=== PATIENT | male | born 1930 | race Caucasian/White ===

== ENCOUNTER → 2016-09-14 | Outpatient (CLI) | payer OTHER ==
[~2016-09-14] MED LIST: OMNIPAQUE 350 MG/ML, 100ML BOTTLE ONE
== END | disposition home or self-care (01) ==
LOC: CFH 10:14
PROVIDERS: ATTEND Otolaryngology Facial Plastic Surgery
DX: R49.9 Unspecified voice and resonance disorder (principal); J02.9 Acute pharyngitis, unspecified; R49.0 Dysphonia
CPT/HCPCS: 70491; Q9967

== ENCOUNTER 2017-05-01 14:52 | Inpatient (IN) | payer OTHER ==
[~2017-05-01] VITALS: Ht 177.8 cm; Wt 119.0 kg
[2017-05-01] MEDS ORDERED: ALBUTEROL/IPRATROPIUM 2.5MG/0.5MG, 3 ML ONE (15:21)
[2017-05-01] MEDS ORDERED: FUROSEMIDE 40 MG/4 ML IV ONE (15:30)
[2017-05-01] MEDS ORDERED: ALBUTEROL/IPRATROPIUM 2.5MG/0.5MG, 3 ML NPPB ONE (15:30)
[2017-05-01] MEDS ORDERED: SODIUM CHLORIDE FLUSH 10ML SYR IVF ONE (15:30)
[2017-05-01] MEDS ORDERED: LEVO150T5 PO (15:39)
[2017-05-01 15:54] LABS: ALANINE AMINOTRANSFERASE 23 U/L (12-78); ALBUMIN 2.9 g/dL (3.4-5.0); ANION GAP 8 mmol/L (5-15); CHLORIDE 105 mmol/L (98-107)
[2017-05-01 15:58] LABS: ALKALINE PHOSPHATASE 51 U/L (45-117); BILIRUBIN,TOTAL 0.9 mg/dL (0.2-1.0); TOTAL PROTEIN 7.2 g/dL (6.4-8.2); TROPONIN I 0.104 ng/mL (0.000-0.045)
[2017-05-01 16:23] LABS: MEAN CORPUSCULAR HEMOGLOBIN 22.1 pg (27.5-34.5); MEAN CORPUSCULAR HGB CONC 30.1 g/dL (33.2-36.2); MEAN CORPUSCULAR VOLUME 73.6 fL (81-97); RED BLOOD COUNT 7.92 x10^6/uL (4.38-5.82); RED CELL DISTRIBUTION WIDTH 21.2 % (9.4-14.8)
[2017-05-01 16:27] LABS: MD YES
[2017-05-01] MEDS ORDERED: FUROSEMIDE 40 MG/4 ML ONE (16:29)
[2017-05-01] MEDS ORDERED: ASPIRIN 81 MG TABLET CHEW ONE (16:29)
[2017-05-01 16:30] LABS: BANDS%(MANUAL) 1 % (0-7); BASOS% (MANUAL) 1 % (0-1); EOS% (MANUAL) 1 % (1-7); LYMPH#(MANUAL) 0.67 x10^3/uL (1-3.4); LYMPHS% (MANUAL) 7 % (22-44); MONOS#(MANUAL) 1.06 x10^3/uL (0.3-2.7); MONOS% (MANUAL) 11 % (2-9); NRBC % (MANUAL) 3 % (0-1); SEG#(MANUAL) 7.58 x10^3/uL (1.8-6.8); SEGS% (MANUAL) 79 % (42-75)
[2017-05-01] MEDS ORDERED: ASPIRIN 81 MG TABLET CHEW PO ONE (16:30)
[2017-05-01 16:31] LABS: MICROCYTOSIS 2+; OVALOCYTES 1+; POLYCHROMASIA 1+
[2017-05-01 16:33] LABS: <PLATELET ESTIMATE> ADEQUATE; GIANT PLATELETS 1+; LARGE PLATELETS 2+
[2017-05-01 16:34] LABS: ANISOCYTOSIS 1+; HYPOCHROMIA 2+
[2017-05-01 16:35] LABS: PLATELET COUNT 182 x10^3/uL (130-400)
[2017-05-01 16:51] LABS: MEAN PLATELET VOLUME 11.4 fL (7.4-10.4)
[2017-05-01] MEDS ORDERED: ZOLPIDEM 5MG TABLET PO PRN (17:30)
[2017-05-01] MEDS ORDERED: HYDROcodone/APAP 5/325 TABLET PO PRN (17:30)
[2017-05-01] MEDS ORDERED: FUROSEMIDE 40 MG/4 ML IV SCH (17:30)
[2017-05-01] MEDS ORDERED: ONDANSETRON ODT 4 MG PO PRN (17:30)
[2017-05-01] MEDS ORDERED: PRAZ2CAP2 PO (17:31)
[2017-05-01 19:20] VITALS: BP 117/69
[2017-05-01 20:33] VITALS: BP 117/69
[2017-05-01] MEDS: ENOXAPARIN 30 MG/0.3 ML SQ SCH (21:40)
[2017-05-02 01:38] VITALS: BP 115/69
[2017-05-02] MEDS: LEVOTHYROXINE 150 MCG TABLET PO SCH (05:52)
[2017-05-02 06:03] LABS: MEAN CORPUSCULAR HEMOGLOBIN 22.3 pg (27.5-34.5); MEAN CORPUSCULAR HGB CONC 30.2 g/dL (33.2-36.2); MEAN CORPUSCULAR VOLUME 73.9 fL (81-97); MEAN PLATELET VOLUME 11.4 fL (7.4-10.4); PLATELET COUNT 165 x10^3/uL (130-400); RED BLOOD COUNT 7.71 x10^6/uL (4.38-5.82); RED CELL DISTRIBUTION WIDTH 21.6 % (9.4-14.8)
[2017-05-02 06:26] LABS: HEMOGLOBIN A1C 7.7 % (4.2-6.3)
[2017-05-02 06:27] LABS: ALBUMIN 2.6 g/dL (3.4-5.0); ANION GAP 7 mmol/L (5-15); CHLORIDE 107 mmol/L (98-107)
[2017-05-02 06:36] LABS: MD YES
[2017-05-02 06:38] LABS: ALANINE AMINOTRANSFERASE 18 U/L (12-78); ALKALINE PHOSPHATASE 49 U/L (45-117); BILIRUBIN,TOTAL 0.7 mg/dL (0.2-1.0); CREATININE 2.36 mg/dL (0.7-1.3); EOS#(MANUAL) 0.09 x10^3/uL (0.0-0.4); EOS% (MANUAL) 1 % (1-7); FREE T4 (FREE THYROXINE) 1.08 ng/dL (0.76-1.46); LYMPH#(MANUAL) 0.83 x10^3/uL (1-3.4); LYMPHS% (MANUAL) 9 % (22-44); MONOS% (MANUAL) 12 % (2-9); NRBC % (MANUAL) 2 % (0-1); SEG#(MANUAL) 7.18 x10^3/uL (1.8-6.8); SEGS% (MANUAL) 78 % (42-75); THYROID STIMULATING HORMONE 0.368 mIU/L (0.358-3.740); TOTAL PROTEIN 6.6 g/dL (6.4-8.2)
[2017-05-02 06:40] LABS: <PLATELET ESTIMATE> ADEQUATE; ANISOCYTOSIS 1+; HYPOCHROMIA 2+; MICROCYTOSIS 2+; POLYCHROMASIA 1+
[2017-05-02 06:41] LABS: GIANT PLATELETS 1+; LARGE PLATELETS 1+
[2017-05-02] MEDS: ALBUTEROL/IPRATROPIUM 2.5MG/0.5MG, 3 ML NPPB SCH ×4 (07:00→19:17)
[2017-05-02] MEDS ORDERED: VANCOMYCIN PER PHARMACY MC PRN (08:00)
[2017-05-02] MEDS ORDERED: PHARMACOKINETIC MONITORING MC PRN (08:00)
[2017-05-02] MEDS ORDERED: PHARMACOKINETIC CONSULTATION MC ONE (08:00)
[2017-05-02 08:04] VITALS: BP 122/78
[2017-05-02] MEDS ORDERED: VANCOMYCIN 2,000 MG in SODIUM CHLORIDE 0.9% 500 ML IV SCH (09:00)
[2017-05-02] MEDS: INSULIN LISPRO 100 UNITS/ML, PEN SQ-INSULIN SCH ×3 (12:00→20:46)
[2017-05-02 12:52] LABS: MICROSCOPIC INDICATED
[2017-05-02 12:54] LABS: CULTURE INDICATED? YES
[2017-05-02] MEDS: PIPERACILLIN/TAZO/PMX 3.375GM 50 ML IV SCH ×2 (13:13→19:39)
[2017-05-02] MEDS: methylPREDNISolone SOD SUCC 125 MG/2 ML IVPush SCH ×2 (13:13→19:38)
[2017-05-02] MEDS ORDERED: FUROSEMIDE 100 MG/10 ML IV ONE (13:30)
[2017-05-02] MEDS ORDERED: FUROSEMIDE 40 MG/4 ML ONE (14:18)
[2017-05-02] MEDS: LINEZOLID PMX 600MG/300ML 300 ML IV SCH (14:25)
[2017-05-02] MEDS: ENOXAPARIN 30 MG/0.3 ML SQ SCH (20:46)
[2017-05-03] MEDS: LINEZOLID PMX 600MG/300ML 300 ML IV SCH ×2 (00:15→12:18)
[2017-05-03] MEDS: PIPERACILLIN/TAZO/PMX 3.375GM 50 ML IV SCH ×4 (00:15→20:27)
[2017-05-03] MEDS: methylPREDNISolone SOD SUCC 125 MG/2 ML IVPush SCH ×4 (00:15→20:28)
[2017-05-03 04:49] LABS: CHLORIDE 108 mmol/L (98-107)
[2017-05-03 04:56] LABS: ALANINE AMINOTRANSFERASE 20 U/L (12-78); ALBUMIN 2.5 g/dL (3.4-5.0); ALKALINE PHOSPHATASE 46 U/L (45-117); ANION GAP 4 mmol/L (5-15); BILIRUBIN,TOTAL 0.7 mg/dL (0.2-1.0); CALCIUM 7.5 mg/dL (8.5-10.1); MEAN CORPUSCULAR HEMOGLOBIN 22.1 pg (27.5-34.5); MEAN CORPUSCULAR VOLUME 73.8 fL (81-97); MEAN PLATELET VOLUME 11.4 fL (7.4-10.4); PLATELET COUNT 145 x10^3/uL (130-400); RED BLOOD COUNT 7.66 x10^6/uL (4.38-5.82); RED CELL DISTRIBUTION WIDTH 22.2 % (9.4-14.8); TOTAL PROTEIN 6.6 g/dL (6.4-8.2)
[2017-05-03 05:45] LABS: MD YES
[2017-05-03 05:46] LABS: LYMPH#(MANUAL) 0.28 x10^3/uL (1-3.4); LYMPHS% (MANUAL) 4 % (22-44); MONOS#(MANUAL) 0.21 x10^3/uL (0.3-2.7); MONOS% (MANUAL) 3 % (2-9); NRBC % (MANUAL) 3 % (0-1); SEGS% (MANUAL) 93 % (42-75)
[2017-05-03 05:47] LABS: ANISOCYTOSIS 1+; HYPOCHROMIA 2+; MICROCYTOSIS 2+; POLYCHROMASIA 1+
[2017-05-03 05:48] LABS: <PLATELET ESTIMATE> ADEQUATE
[2017-05-03 05:49] LABS: LARGE PLATELETS 1+
[2017-05-03 05:50] LABS: GIANT PLATELETS 1+
[2017-05-03] MEDS: LEVOTHYROXINE 150 MCG TABLET PO SCH (06:01)
[2017-05-03] MEDS: ALBUTEROL/IPRATROPIUM 2.5MG/0.5MG, 3 ML NPPB SCH ×4 (06:34→20:00)
[2017-05-03 09:00] LABS: FIO2 95 %
[2017-05-03] MEDS ORDERED: FUROSEMIDE 40 MG/4 ML IV SCH (09:00)
[2017-05-03] MEDS: INSULIN LISPRO 100 UNITS/ML, PEN SQ-INSULIN SCH ×4 (09:42→20:32)
[2017-05-03] MEDS: FUROSEMIDE 40 MG/4 ML IV SCH ×2 (09:49→18:36)
[2017-05-03] MEDS: ENOXAPARIN 30 MG/0.3 ML SQ SCH (20:28)
[2017-05-04] MEDS: LINEZOLID PMX 600MG/300ML 300 ML IV SCH (01:26)
[2017-05-04] MEDS: methylPREDNISolone SOD SUCC 125 MG/2 ML IVPush SCH ×3 (04:33→18:06)
[2017-05-04] MEDS: PIPERACILLIN/TAZO/PMX 3.375GM 50 ML IV SCH ×2 (04:33→09:39)
[2017-05-04 05:02] LABS: ANION GAP 5 mmol/L (5-15); CALCIUM 7.4 mg/dL (8.5-10.1); CHLORIDE 107 mmol/L (98-107)
[2017-05-04 05:06] LABS: ALANINE AMINOTRANSFERASE 14 U/L (12-78); ALBUMIN 2.5 g/dL (3.4-5.0); ALKALINE PHOSPHATASE 37 U/L (45-117); BILIRUBIN,TOTAL 0.7 mg/dL (0.2-1.0); CREATININE 2.15 mg/dL (0.7-1.3); TOTAL PROTEIN 6.2 g/dL (6.4-8.2)
[2017-05-04 05:11] LABS: MEAN CORPUSCULAR HEMOGLOBIN 21.9 pg (27.5-34.5); MEAN CORPUSCULAR VOLUME 73.4 fL (81-97); MEAN PLATELET VOLUME 11.8 fL (7.4-10.4); PLATELET COUNT 150 x10^3/uL (130-400); RED BLOOD COUNT 7.61 x10^6/uL (4.38-5.82); RED CELL DISTRIBUTION WIDTH 21.9 % (9.4-14.8)
[2017-05-04 05:58] LABS: MD YES
[2017-05-04 06:00] LABS: MEAN CORPUSCULAR HGB CONC 29.8 g/dL (33.2-36.2)
[2017-05-04 06:08] LABS: <PLATELET ESTIMATE> ADEQUATE; ANISOCYTOSIS 1+; GIANT PLATELETS 1+; HYPOCHROMIA 2+; LARGE PLATELETS 1+; LYMPH#(MANUAL) 0.25 x10^3/uL (1-3.4); LYMPHS% (MANUAL) 2 % (22-44); MICROCYTOSIS 2+; MONOS#(MANUAL) 0.13 x10^3/uL (0.3-2.7); MONOS% (MANUAL) 1 % (2-9); NRBC % (MANUAL) 3 % (0-1); POLYCHROMASIA 1+
[2017-05-04 06:09] LABS: BAND#(MANUAL) 0.88 x10^3/uL; BANDS%(MANUAL) 7 % (0-7); SEG#(MANUAL) 11.34 x10^3/uL (1.8-6.8); SEGS% (MANUAL) 90 % (42-75)
[2017-05-04] MEDS: LEVOTHYROXINE 150 MCG TABLET PO SCH (06:26)
[2017-05-04] MEDS: ALBUTEROL/IPRATROPIUM 2.5MG/0.5MG, 3 ML NPPB SCH ×6 (06:55→23:36)
[2017-05-04] MEDS: FUROSEMIDE 40 MG/4 ML IV SCH ×2 (08:08→18:07)
[2017-05-04] MEDS: INSULIN LISPRO 100 UNITS/ML, PEN SQ-INSULIN SCH ×4 (08:08→20:21)
[2017-05-04] MEDS: SODIUM BICARBONATE 4.2%, 5ML NPPB SCH ×2 (09:51→14:42)
[2017-05-04] MEDS ORDERED: MELATONIN 5 MG TABLET PO PRN (11:30)
[2017-05-04] MEDS ORDERED: CEFTRIAXONE PMX 2GM/50ML 50 ML IVPB SCH (13:00)
[2017-05-04] MEDS: ENOXAPARIN 30 MG/0.3 ML SQ SCH (20:20)
[2017-05-04] MEDS: INSULIN GLARGINE 100 UNITS/ML, PEN SQ-INSULIN SCH (20:22)
[2017-05-05] MEDS: methylPREDNISolone SOD SUCC 125 MG/2 ML IVPush SCH ×4 (00:21→17:08)
[2017-05-05] MEDS: ALBUTEROL/IPRATROPIUM 2.5MG/0.5MG, 3 ML NPPB SCH ×6 (03:21→21:22)
[2017-05-05 04:45] LABS: MEAN CORPUSCULAR HEMOGLOBIN 21.9 pg (27.5-34.5); MEAN CORPUSCULAR HGB CONC 29.7 g/dL (33.2-36.2); MEAN CORPUSCULAR VOLUME 73.7 fL (81-97); MEAN PLATELET VOLUME 12.1 fL (7.4-10.4); PLATELET COUNT 149 x10^3/uL (130-400); RED BLOOD COUNT 7.98 x10^6/uL (4.38-5.82); RED CELL DISTRIBUTION WIDTH 22.4 % (9.4-14.8)
[2017-05-05 04:51] LABS: ALBUMIN 2.6 g/dL (3.4-5.0); ANION GAP 6 mmol/L (5-15); CALCIUM 7.1 mg/dL (8.5-10.1); CHLORIDE 105 mmol/L (98-107)
[2017-05-05 04:56] LABS: ALANINE AMINOTRANSFERASE 18 U/L (12-78); ALKALINE PHOSPHATASE 38 U/L (45-117); BILIRUBIN,TOTAL 0.6 mg/dL (0.2-1.0); CREATININE 1.89 mg/dL (0.7-1.3); TOTAL PROTEIN 6.4 g/dL (6.4-8.2)
[2017-05-05 05:40] LABS: MD YES
[2017-05-05 05:42] LABS: ANISOCYTOSIS 1+; BANDS%(MANUAL) 5 % (0-7); LYMPH#(MANUAL) 0.12 x10^3/uL (1-3.4); LYMPHS% (MANUAL) 1 % (22-44); MONOS#(MANUAL) 0.24 x10^3/uL (0.3-2.7); MONOS% (MANUAL) 2 % (2-9); SEG#(MANUAL) 11.04 x10^3/uL (1.8-6.8); SEGS% (MANUAL) 92 % (42-75)
[2017-05-05 05:43] LABS: <PLATELET ESTIMATE> ADEQUATE; LARGE PLATELETS 1+; POLYCHROMASIA 1+
[2017-05-05 05:44] LABS: HYPOCHROMIA 1+; MICROCYTOSIS 2+
[2017-05-05] MEDS: LEVOTHYROXINE 150 MCG TABLET PO SCH (06:31)
[2017-05-05] MEDS: INSULIN LISPRO 100 UNITS/ML, PEN SQ-INSULIN SCH ×4 (09:10→21:31)
[2017-05-05] MEDS: FUROSEMIDE 40 MG/4 ML IV SCH ×2 (09:11→17:08)
[2017-05-05] MEDS ORDERED: MAGNESIUM HYDROXIDE 8%, 30ML UDC PO PRN (12:00)
[2017-05-05] MEDS: CEFTRIAXONE 2 GM in DEXTROSE 5% 50 ML IVPB SCH (12:59)
[2017-05-05] MEDS ORDERED: INSULIN GLARGINE 100 UNITS/ML, PEN SQ-INSULIN ONE (13:30)
[2017-05-05] MEDS ORDERED: PRAZOSIN 2 MG CAPSULE PO ONE (13:30)
[2017-05-05] MEDS ORDERED: BISACODYL 5 MG EC TABLET PO PRN (13:30)
[2017-05-05] MEDS ORDERED: PHARMACY MAY ADJ FOR RENAL FX MC PRN (14:30)
[2017-05-05] MEDS: ENOXAPARIN 30 MG/0.3 ML SQ SCH (21:30)
[2017-05-05] MEDS: INSULIN GLARGINE 100 UNITS/ML, PEN SQ-INSULIN SCH (21:32)
[2017-05-06] MEDS: methylPREDNISolone SOD SUCC 125 MG/2 ML IVPush SCH ×3 (01:19→18:10)
[2017-05-06] MEDS: ALBUTEROL/IPRATROPIUM 2.5MG/0.5MG, 3 ML NPPB SCH ×6 (01:45→21:12)
[2017-05-06 04:00] VITALS: BP 121/69
[2017-05-06 04:33] LABS: MEAN CORPUSCULAR HEMOGLOBIN 22.1 pg (27.5-34.5); MEAN CORPUSCULAR HGB CONC 30.1 g/dL (33.2-36.2); MEAN CORPUSCULAR VOLUME 73.3 fL (81-97); MEAN PLATELET VOLUME 11.7 fL (7.4-10.4); PLATELET COUNT 145 x10^3/uL (130-400); RED BLOOD COUNT 7.79 x10^6/uL (4.38-5.82); RED CELL DISTRIBUTION WIDTH 21.6 % (9.4-14.8)
[2017-05-06 04:45] LABS: ANION GAP 6 mmol/L (5-15); CALCIUM 7.1 mg/dL (8.5-10.1); CHLORIDE 105 mmol/L (98-107); CREATININE 1.85 mg/dL (0.7-1.3)
[2017-05-06 04:59] LABS: MD YES
[2017-05-06 05:00] LABS: LYMPH#(MANUAL) 0.67 x10^3/uL (1-3.4); LYMPHS% (MANUAL) 6 % (22-44); MONOS#(MANUAL) 0.33 x10^3/uL (0.3-2.7); MONOS% (MANUAL) 3 % (2-9); SEGS% (MANUAL) 91 % (42-75)
[2017-05-06 05:01] LABS: <PLATELET ESTIMATE> ADEQUATE; ANISOCYTOSIS 1+; HYPOCHROMIA 1+; LARGE PLATELETS 1+; MICROCYTOSIS 2+; POLYCHROMASIA 1+
[2017-05-06] MEDS: LEVOTHYROXINE 150 MCG TABLET PO SCH (06:37)
[2017-05-06] MEDS: INSULIN LISPRO 100 UNITS/ML, PEN SQ-INSULIN SCH (06:41)
[2017-05-06] MEDS ORDERED: PRAZOSIN 2 MG CAPSULE PO SCH (09:00)
[2017-05-06] MEDS: FUROSEMIDE 40 MG/4 ML IV SCH ×2 (09:02→18:10)
[2017-05-06] MEDS ORDERED: POTASSIUM CHLORIDE 10% 40 MEQ/30 ML UDC PO ONE (09:30)
[2017-05-06] MEDS: CEFTRIAXONE 2 GM in DEXTROSE 5% 50 ML IVPB SCH (12:44)
[2017-05-06] MEDS ORDERED: INSULIN GLARGINE 100 UNITS/ML, PEN SQ-INSULIN ONE (13:00)
[2017-05-06] MEDS: INSULIN LISPRO 100 UNITS/ML, PEN MEDIUM DOSE SS SQ-INSULIN SCH ×3 (13:08→20:50)
[2017-05-06] MEDS: ENOXAPARIN 30 MG/0.3 ML SQ SCH (20:49)
[2017-05-06] MEDS: INSULIN GLARGINE 100 UNITS/ML, PEN SQ-INSULIN SCH (20:50)
[2017-05-07] MEDS: methylPREDNISolone SOD SUCC 125 MG/2 ML IVPush SCH (00:51)
[2017-05-07] MEDS: ALBUTEROL/IPRATROPIUM 2.5MG/0.5MG, 3 ML NPPB SCH ×6 (02:53→22:12)
[2017-05-07 04:31] LABS: ALBUMIN 2.7 g/dL (3.4-5.0); ANION GAP 6 mmol/L (5-15); CALCIUM 7.9 mg/dL (8.5-10.1); CHLORIDE 102 mmol/L (98-107)
[2017-05-07 04:35] LABS: ALANINE AMINOTRANSFERASE 34 U/L (12-78); ALKALINE PHOSPHATASE 40 U/L (45-117); BILIRUBIN,TOTAL 1.2 mg/dL (0.2-1.0); TOTAL PROTEIN 6.4 g/dL (6.4-8.2)
[2017-05-07 05:21] VITALS: BP 166/80
[2017-05-07 05:42] LABS: MEAN CORPUSCULAR HGB CONC 30.3 g/dL (33.2-36.2); MEAN CORPUSCULAR VOLUME 72.4 fL (81-97); MEAN PLATELET VOLUME 11.8 fL (7.4-10.4); PLATELET COUNT 150 x10^3/uL (130-400); RED CELL DISTRIBUTION WIDTH 21.5 % (9.4-14.8)
[2017-05-07 06:09] LABS: MD YES
[2017-05-07 06:11] LABS: ANISOCYTOSIS 1+; BAND#(MANUAL) 0.11 x10^3/uL; BANDS%(MANUAL) 1 % (0-7); LYMPH#(MANUAL) 0.11 x10^3/uL (1-3.4); LYMPHS% (MANUAL) 1 % (22-44); NRBC % (MANUAL) 1 % (0-1); SEG#(MANUAL) 10.49 x10^3/uL (1.8-6.8); SEGS% (MANUAL) 98 % (42-75)
[2017-05-07 06:13] LABS: MICROCYTOSIS 1+; POLYCHROMASIA 1+
[2017-05-07 06:14] LABS: <PLATELET ESTIMATE> ADEQUATE; LARGE PLATELETS 1+
[2017-05-07] MEDS: LEVOTHYROXINE 150 MCG TABLET PO SCH (06:24)
[2017-05-07] MEDS: INSULIN LISPRO 100 UNITS/ML, PEN MEDIUM DOSE SS SQ-INSULIN SCH ×4 (07:56→20:01)
[2017-05-07] MEDS: AMLODIPINE 5 MG TABLET PO SCH (09:13)
[2017-05-07] MEDS: CEFTRIAXONE 2 GM in DEXTROSE 5% 50 ML IVPB SCH (12:35)
[2017-05-07] MEDS: ENOXAPARIN 40 MG/0.4 ML SQ SCH (20:01)
[2017-05-07] MEDS: INSULIN GLARGINE 100 UNITS/ML, PEN SQ-INSULIN SCH (20:02)
[2017-05-08] MEDS: LEVOTHYROXINE 150 MCG TABLET PO SCH (05:16)
[2017-05-08 05:40] VITALS: BP 156/90
[2017-05-08] MEDS: ALBUTEROL/IPRATROPIUM 2.5MG/0.5MG, 3 ML NPPB SCH ×5 (06:42→22:01)
[2017-05-08] MEDS: AMLODIPINE 5 MG TABLET PO SCH (08:17)
[2017-05-08] MEDS: INSULIN LISPRO 100 UNITS/ML, PEN MEDIUM DOSE SS SQ-INSULIN SCH ×4 (08:18→21:11)
[2017-05-08 09:24] LABS: MEAN CORPUSCULAR HEMOGLOBIN 22.1 pg (27.5-34.5); MEAN CORPUSCULAR HGB CONC 30.6 g/dL (33.2-36.2); MEAN CORPUSCULAR VOLUME 72.3 fL (81-97); MEAN PLATELET VOLUME 11.1 fL (7.4-10.4); PLATELET COUNT 133 x10^3/uL (130-400); RED CELL DISTRIBUTION WIDTH 20.9 % (9.4-14.8)
[2017-05-08 09:25] LABS: ANION GAP 6 mmol/L (5-15); CALCIUM 8.2 mg/dL (8.5-10.1); CHLORIDE 102 mmol/L (98-107)
[2017-05-08 09:26] LABS: CREATININE 1.53 mg/dL (0.7-1.3)
[2017-05-08 09:39] LABS: RED BLOOD COUNT 8.66 x10^6/uL (4.38-5.82)
[2017-05-08 10:05] LABS: MD YES
[2017-05-08 10:07] LABS: LYMPH#(MANUAL) 0.36 x10^3/uL (1-3.4); LYMPHS% (MANUAL) 3 % (22-44); MONOS#(MANUAL) 0.48 x10^3/uL (0.3-2.7); MONOS% (MANUAL) 4 % (2-9); SEG#(MANUAL) 11.25 x10^3/uL (1.8-6.8); SEGS% (MANUAL) 93 % (42-75)
[2017-05-08 10:08] LABS: ANISOCYTOSIS 1+
[2017-05-08 10:09] LABS: MICROCYTOSIS 2+
[2017-05-08 10:10] LABS: LARGE PLATELETS 1+
[2017-05-08 10:12] LABS: <PLATELET ESTIMATE> ADEQUATE
[2017-05-08] MEDS: CEFTRIAXONE 2 GM in DEXTROSE 5% 50 ML IVPB SCH (13:39)
[2017-05-08 20:00] VITALS: BP 153/83
[2017-05-08] MEDS: ENOXAPARIN 40 MG/0.4 ML SQ SCH (21:11)
[2017-05-08] MEDS: INSULIN GLARGINE 100 UNITS/ML, PEN SQ-INSULIN SCH (21:11)
[2017-05-09 01:47] VITALS: BP 150/80
[2017-05-09 05:59] LABS: CHLORIDE 106 mmol/L (98-107)
[2017-05-09 06:04] LABS: ALANINE AMINOTRANSFERASE 32 U/L (12-78); ALBUMIN 2.4 g/dL (3.4-5.0); ALKALINE PHOSPHATASE 37 U/L (45-117); ANION GAP 3 mmol/L (5-15); CALCIUM 8.7 mg/dL (8.5-10.1); CREATININE 1.25 mg/dL (0.7-1.3); TOTAL PROTEIN 5.5 g/dL (6.4-8.2)
[2017-05-09] MEDS: LEVOTHYROXINE 150 MCG TABLET PO SCH (06:08)
[2017-05-09 06:09] LABS: MEAN CORPUSCULAR VOLUME 73.7 fL (81-97); PLATELET COUNT 137 x10^3/uL (130-400); RED CELL DISTRIBUTION WIDTH 22.5 % (9.4-14.8)
[2017-05-09 06:21] LABS: RED BLOOD COUNT 8.27 x10^6/uL (4.38-5.82)
[2017-05-09 06:22] LABS: MEAN CORPUSCULAR HGB CONC 29.8 g/dL (33.2-36.2)
[2017-05-09 06:28] LABS: BASOPHILS # (AUTO) 0.03 x10^3/uL (0-0.1); BASOPHILS % (AUTO) 0 % (0-1); EOSINOPHILS # (AUTO) 0.31 x10^3/uL (0-0.4); EOSINOPHILS % (AUTO) 3 % (1-7); LYMPHOCYTES # (AUTO) 0.43 x10^3/uL (1-3.4); LYMPHOCYTES % (AUTO) 5 % (22-44); MD SCAN; MONOCYTES # (AUTO) 0.65 x10^3/uL (0.2-0.8); MONOCYTES % (AUTO) 7 % (2-9); NEUTROPHILS # (AUTO) 7.85 x10^3/uL (1.8-6.8); NEUTROPHILS % (AUTO) 85 % (42-75)
[2017-05-09 06:58] VITALS: BP 155/81
[2017-05-09] MEDS: INSULIN LISPRO 100 UNITS/ML, PEN MEDIUM DOSE SS SQ-INSULIN SCH ×4 (07:00→21:43)
[2017-05-09] MEDS: ALBUTEROL/IPRATROPIUM 2.5MG/0.5MG, 3 ML NPPB SCH ×5 (07:31→22:00)
[2017-05-09] MEDS: AMLODIPINE 5 MG TABLET PO SCH (08:30)
[2017-05-09] MEDS ORDERED: SODIUM CHLORIDE 0.45% 500 ML IV ONE (10:30)
[2017-05-09] MEDS: CEFTRIAXONE 2 GM in DEXTROSE 5% 50 ML IVPB SCH (13:23)
[2017-05-09 15:25] VITALS: BP 147/81
[2017-05-09 19:53] VITALS: BP 153/85
[2017-05-09] MEDS ORDERED: INSULIN GLARGINE 100 UNITS/ML, PEN SQ-INSULIN SCH (21:00)
[2017-05-09] MEDS: ENOXAPARIN 40 MG/0.4 ML SQ SCH (21:57)
[2017-05-10 01:45] VITALS: BP 163/89
[2017-05-10 05:24] LABS: ALANINE AMINOTRANSFERASE 29 U/L (12-78); ALBUMIN 2.3 g/dL (3.4-5.0); ANION GAP 0 mmol/L (5-15); CALCIUM 8.7 mg/dL (8.5-10.1); CHLORIDE 106 mmol/L (98-107); CREATININE 1.28 mg/dL (0.7-1.3)
[2017-05-10 05:27] LABS: ALKALINE PHOSPHATASE 37 U/L (45-117); BILIRUBIN,TOTAL 1.2 mg/dL (0.2-1.0); TOTAL PROTEIN 5.4 g/dL (6.4-8.2)
[2017-05-10] MEDS: LEVOTHYROXINE 150 MCG TABLET PO SCH (06:22)
[2017-05-10] MEDS: INSULIN LISPRO 100 UNITS/ML, PEN MEDIUM DOSE SS SQ-INSULIN SCH ×4 (07:00→21:27)
[2017-05-10] MEDS: ALBUTEROL/IPRATROPIUM 2.5MG/0.5MG, 3 ML NPPB SCH ×6 (08:10→23:58)
[2017-05-10 08:27] VITALS: BP 144/79
[2017-05-10] MEDS ORDERED: MELA5TAB19 PO (08:44)
[2017-05-10] MEDS ORDERED: BISA5TAB5 PO (08:44)
[2017-05-10] MEDS ORDERED: AMLO5TAB2 PO (08:44)
[2017-05-10] MEDS ORDERED: CEFD300C37 PO (08:44)
[2017-05-10] MEDS: CEFDINIR 300 MG CAPSULE PO SCH ×2 (09:04→21:27)
[2017-05-10] MEDS: AMLODIPINE 5 MG TABLET PO SCH (09:04)
[2017-05-10 15:19] VITALS: BP 135/82
[2017-05-10 19:42] VITALS: BP 149/80
[2017-05-10] MEDS: ENOXAPARIN 40 MG/0.4 ML SQ SCH (21:27)
[2017-05-11 00:18] VITALS: BP 134/73
[2017-05-11] MEDS: LEVOTHYROXINE 150 MCG TABLET PO SCH (05:15)
[2017-05-11 05:34] LABS: ANION GAP 2 mmol/L (5-15); CALCIUM 8.5 mg/dL (8.5-10.1); CHLORIDE 107 mmol/L (98-107)
[2017-05-11 05:35] LABS: CREATININE 1.09 mg/dL (0.7-1.3)
[2017-05-11 06:48] VITALS: BP 136/79
[2017-05-11] MEDS: INSULIN LISPRO 100 UNITS/ML, PEN MEDIUM DOSE SS SQ-INSULIN SCH ×4 (07:00→19:27)
[2017-05-11] MEDS: AMLODIPINE 5 MG TABLET PO SCH (07:50)
[2017-05-11] MEDS: CEFDINIR 300 MG CAPSULE PO SCH ×2 (07:50→19:26)
[2017-05-11] MEDS: ALBUTEROL/IPRATROPIUM 2.5MG/0.5MG, 3 ML NPPB SCH ×5 (08:01→22:00)
[2017-05-11] MEDS ORDERED: FUROSEMIDE 40 MG/4 ML IV ONE ×2 (09:30→17:00)
[2017-05-11] MEDS ORDERED: FUROSEMIDE 40 MG/4 ML IV SCH (09:30)
[2017-05-11 14:20] VITALS: BP 124/77
[2017-05-11] MEDS: ENOXAPARIN 40 MG/0.4 ML SQ SCH (19:27)
[2017-05-11 20:18] VITALS: BP 133/76
[2017-05-12 01:08] VITALS: BP 139/77
[2017-05-12] MEDS: LEVOTHYROXINE 150 MCG TABLET PO SCH (05:32)
[2017-05-12] MEDS: INSULIN LISPRO 100 UNITS/ML, PEN MEDIUM DOSE SS SQ-INSULIN SCH ×4 (05:34→20:27)
[2017-05-12 06:01] LABS: ALANINE AMINOTRANSFERASE 31 U/L (12-78); ALBUMIN 2.2 g/dL (3.4-5.0); ANION GAP 2 mmol/L (5-15); CALCIUM 8.5 mg/dL (8.5-10.1); CHLORIDE 103 mmol/L (98-107)
[2017-05-12 06:03] LABS: ALKALINE PHOSPHATASE 39 U/L (45-117); TOTAL PROTEIN 5.3 g/dL (6.4-8.2)
[2017-05-12] MEDS: ALBUTEROL/IPRATROPIUM 2.5MG/0.5MG, 3 ML NPPB SCH ×4 (06:58→18:47)
[2017-05-12 07:45] VITALS: BP 146/76
[2017-05-12] MEDS: CEFDINIR 300 MG CAPSULE PO SCH ×2 (09:06→20:27)
[2017-05-12] MEDS: AMLODIPINE 5 MG TABLET PO SCH (09:06)
[2017-05-12] MEDS: TORSEMIDE 20 MG TABLET PO SCH (09:06)
[2017-05-12 13:48] VITALS: BP 99/62
[2017-05-12 19:59] VITALS: BP 129/76
[2017-05-12] MEDS: ENOXAPARIN 40 MG/0.4 ML SQ SCH (20:27)
[2017-05-13] MEDS: ALBUTEROL/IPRATROPIUM 2.5MG/0.5MG, 3 ML NPPB SCH ×6 (00:31→22:49)
[2017-05-13 02:37] VITALS: BP 118/69
[2017-05-13] MEDS: LEVOTHYROXINE 150 MCG TABLET PO SCH (04:53)
[2017-05-13] MEDS: ASPIRIN 81 MG TABLET EC PO SCH (04:53)
[2017-05-13 05:55] LABS: ANION GAP 2 mmol/L (5-15); CALCIUM 8.4 mg/dL (8.5-10.1); CHLORIDE 103 mmol/L (98-107)
[2017-05-13 06:02] LABS: % IRON SATURATION 40 % (20-55); CHOL/HDL RATIO 4.4; CHOLESTEROL, TOTAL 129 mg/dL (140-239); CREATININE 1.13 mg/dL (0.7-1.3); HDL CHOL % 22 % (26-37); HDL CHOLESTEROL (DIRECT) 29 mg/dL (40-60); IRON LEVEL 131 mcg/dL (65-175); LDL CHOLESTEROL,CALCULATED 79 mg/dL (54-169); LDL/HDL RATIO 2.7 (0.5-3.0); PREALBUMIN 13.3 mg/dL (20.0-40.0); TOTAL IRON BINDING CAPACITY 326 mcg/dL (250-450); TRIGLYCERIDES 105 mg/dL (50-200); VLDL CHOLESTEROL 21 mg/dL (0-25)
[2017-05-13 06:48] LABS: MEAN CORPUSCULAR HEMOGLOBIN 22.4 pg (27.5-34.5); MEAN CORPUSCULAR HGB CONC 30.4 g/dL (33.2-36.2); MEAN CORPUSCULAR VOLUME 73.6 fL (81-97); MEAN PLATELET VOLUME 12.6 fL (7.4-10.4); PLATELET COUNT 149 x10^3/uL (130-400); RED BLOOD COUNT 7.33 x10^6/uL (4.38-5.82)
[2017-05-13 06:50] LABS: BASOPHILS # (AUTO) 0.02 x10^3/uL (0-0.1); BASOPHILS % (AUTO) 0 % (0-1); EOSINOPHILS # (AUTO) 0.25 x10^3/uL (0-0.4); EOSINOPHILS % (AUTO) 4 % (1-7); LYMPHOCYTES # (AUTO) 0.66 x10^3/uL (1-3.4); LYMPHOCYTES % (AUTO) 10 % (22-44); MD MORPH REVIEW ONLY; MONOCYTES # (AUTO) 0.88 x10^3/uL (0.2-0.8); MONOCYTES % (AUTO) 13 % (2-9); NEUTROPHILS # (AUTO) 5.13 x10^3/uL (1.8-6.8); NEUTROPHILS % (AUTO) 74 % (42-75)
[2017-05-13 06:51] LABS: ANISOCYTOSIS 1+; MICROCYTOSIS 1+
[2017-05-13 06:52] LABS: <PLATELET ESTIMATE> ADEQUATE
[2017-05-13 06:53] LABS: LARGE PLATELETS 2+
[2017-05-13] MEDS: INSULIN LISPRO 100 UNITS/ML, PEN MEDIUM DOSE SS SQ-INSULIN SCH ×4 (07:00→21:07)
[2017-05-13 07:36] VITALS: BP 122/74
[2017-05-13] MEDS: AMLODIPINE 5 MG TABLET PO SCH (08:07)
[2017-05-13] MEDS: CEFDINIR 300 MG CAPSULE PO SCH ×2 (08:07→21:05)
[2017-05-13] MEDS: TORSEMIDE 20 MG TABLET PO SCH (08:08)
[2017-05-13 12:09] VITALS: BP 112/78
[2017-05-13 18:42] LABS: ANION GAP 3 mmol/L (5-15); CALCIUM 8.5 mg/dL (8.5-10.1); CHLORIDE 101 mmol/L (98-107); CREATININE 1.25 mg/dL (0.7-1.3)
[2017-05-13 18:57] VITALS: BP 120/60
[2017-05-13 19:02] LABS: BASOPHILS % (AUTO) 3 % (0-1); EOSINOPHILS # (AUTO) 0.21 x10^3/uL (0-0.4); EOSINOPHILS % (AUTO) 2 % (1-7); LYMPHOCYTES # (AUTO) 0.79 x10^3/uL (1-3.4); LYMPHOCYTES % (AUTO) 9 % (22-44); MD MORPH REVIEW ONLY; MEAN CORPUSCULAR HEMOGLOBIN 22.3 pg (27.5-34.5); MEAN CORPUSCULAR HGB CONC 30.2 g/dL (33.2-36.2); MEAN CORPUSCULAR VOLUME 73.6 fL (81-97); MEAN PLATELET VOLUME 11.7 fL (7.4-10.4); MONOCYTES % (AUTO) 10 % (2-9); NEUTROPHILS # (AUTO) 6.55 x10^3/uL (1.8-6.8); NEUTROPHILS % (AUTO) 75 % (42-75); PLATELET COUNT 150 x10^3/uL (130-400); RED BLOOD COUNT 7.87 x10^6/uL (4.38-5.82)
[2017-05-13 19:30] LABS: ANISOCYTOSIS 1+; HYPOCHROMIA 1+; MICROCYTOSIS 1+
[2017-05-13 19:31] LABS: <PLATELET ESTIMATE> ADEQUATE; GIANT PLATELETS 1+; LARGE PLATELETS 1+
[2017-05-13] MEDS: ENOXAPARIN 40 MG/0.4 ML SQ SCH (21:05)
[2017-05-14 01:34] VITALS: BP 130/75
[2017-05-14] MEDS: ASPIRIN 81 MG TABLET EC PO SCH (05:20)
[2017-05-14] MEDS: LEVOTHYROXINE 150 MCG TABLET PO SCH (05:20)
[2017-05-14 05:36] LABS: CHLORIDE 102 mmol/L (98-107); MEAN CORPUSCULAR HEMOGLOBIN 22.1 pg (27.5-34.5); MEAN CORPUSCULAR HGB CONC 30.2 g/dL (33.2-36.2); MEAN CORPUSCULAR VOLUME 73.2 fL (81-97); RED BLOOD COUNT 7.26 x10^6/uL (4.38-5.82); RED CELL DISTRIBUTION WIDTH 22.1 % (9.4-14.8)
[2017-05-14 05:40] LABS: ANION GAP 4 mmol/L (5-15); CREATININE 1.11 mg/dL (0.7-1.3)
[2017-05-14 06:05] LABS: BASOPHILS # (AUTO) 0.06 x10^3/uL (0-0.1); BASOPHILS % (AUTO) 1 % (0-1); EOSINOPHILS # (AUTO) 0.24 x10^3/uL (0-0.4); EOSINOPHILS % (AUTO) 3 % (1-7); LYMPHOCYTES # (AUTO) 0.77 x10^3/uL (1-3.4); LYMPHOCYTES % (AUTO) 11 % (22-44); MD SCAN; MEAN PLATELET VOLUME 11.6 fL (7.4-10.4); MONOCYTES # (AUTO) 0.79 x10^3/uL (0.2-0.8); MONOCYTES % (AUTO) 11 % (2-9); NEUTROPHILS # (AUTO) 5.28 x10^3/uL (1.8-6.8); NEUTROPHILS % (AUTO) 74 % (42-75); PLATELET COUNT 156 x10^3/uL (130-400)
[2017-05-14 06:33] VITALS: BP 136/78
[2017-05-14] MEDS: INSULIN LISPRO 100 UNITS/ML, PEN MEDIUM DOSE SS SQ-INSULIN SCH ×4 (07:00→21:12)
[2017-05-14] MEDS: ALBUTEROL/IPRATROPIUM 2.5MG/0.5MG, 3 ML NPPB SCH ×5 (07:00→23:04)
[2017-05-14] MEDS: TORSEMIDE 20 MG TABLET PO SCH (08:34)
[2017-05-14] MEDS: AMLODIPINE 5 MG TABLET PO SCH (08:34)
[2017-05-14] MEDS: CEFDINIR 300 MG CAPSULE PO SCH ×2 (08:34→21:12)
[2017-05-14 12:10] VITALS: BP 116/61
[2017-05-14 19:36] VITALS: BP 120/75
[2017-05-14] MEDS: ENOXAPARIN 40 MG/0.4 ML SQ SCH (21:12)
[2017-05-15 02:12] VITALS: BP 132/72
[2017-05-15] MEDS: LEVOTHYROXINE 150 MCG TABLET PO SCH (05:08)
[2017-05-15] MEDS: ASPIRIN 81 MG TABLET EC PO SCH (05:08)
[2017-05-15] MEDS: INSULIN LISPRO 100 UNITS/ML, PEN MEDIUM DOSE SS SQ-INSULIN SCH ×4 (07:00→20:52)
[2017-05-15] MEDS: AMLODIPINE 5 MG TABLET PO SCH (07:20)
[2017-05-15] MEDS: TORSEMIDE 20 MG TABLET PO SCH (07:21)
[2017-05-15] MEDS: CEFDINIR 300 MG CAPSULE PO SCH ×2 (07:21→20:52)
[2017-05-15] MEDS: ALBUTEROL/IPRATROPIUM 2.5MG/0.5MG, 3 ML NPPB SCH ×5 (07:51→22:42)
[2017-05-15 08:00] VITALS: BP 129/74
[2017-05-15 13:15] VITALS: BP 114/73
[2017-05-15] MEDS ORDERED: SODIUM CHLORIDE NASAL SPRAY 45ML BOTTLE NAS PRN (20:00)
[2017-05-15 20:21] VITALS: BP 117/68
[2017-05-15] MEDS: ENOXAPARIN 40 MG/0.4 ML SQ SCH (20:52)
[2017-05-16 03:06] VITALS: BP 114/76
[2017-05-16] MEDS: LEVOTHYROXINE 150 MCG TABLET PO SCH (05:53)
[2017-05-16] MEDS: ASPIRIN 81 MG TABLET EC PO SCH (05:54)
[2017-05-16] MEDS: INSULIN LISPRO 100 UNITS/ML, PEN MEDIUM DOSE SS SQ-INSULIN SCH ×4 (07:00→20:59)
[2017-05-16] MEDS: ALBUTEROL/IPRATROPIUM 2.5MG/0.5MG, 3 ML NPPB SCH ×5 (07:35→22:00)
[2017-05-16 07:36] VITALS: BP 94/62
[2017-05-16 09:43] VITALS: BP 120/71
[2017-05-16] MEDS: TORSEMIDE 20 MG TABLET PO SCH (09:45)
[2017-05-16] MEDS: CEFDINIR 300 MG CAPSULE PO SCH ×2 (09:45→20:10)
[2017-05-16] MEDS: AMLODIPINE 5 MG TABLET PO SCH (09:45)
[2017-05-16 13:10] VITALS: BP 97/67
[2017-05-16] MEDS: ENOXAPARIN 40 MG/0.4 ML SQ SCH (20:10)
[2017-05-16 20:11] VITALS: BP 111/70
[2017-05-16 23:49] VITALS: BP 115/67
[2017-05-17 00:01] VITALS: BP 115/67
[2017-05-17] MEDS: LEVOTHYROXINE 150 MCG TABLET PO SCH (05:15)
[2017-05-17] MEDS: ASPIRIN 81 MG TABLET EC PO SCH (05:15)
[2017-05-17] MEDS: ALBUTEROL/IPRATROPIUM 2.5MG/0.5MG, 3 ML NPPB SCH ×4 (06:00→20:00)
[2017-05-17 06:54] VITALS: BP 118/69
[2017-05-17] MEDS: INSULIN LISPRO 100 UNITS/ML, PEN MEDIUM DOSE SS SQ-INSULIN SCH ×4 (07:00→20:52)
[2017-05-17] MEDS: TORSEMIDE 20 MG TABLET PO SCH (08:21)
[2017-05-17] MEDS: CEFDINIR 300 MG CAPSULE PO SCH ×2 (08:21→21:17)
[2017-05-17] MEDS: AMLODIPINE 5 MG TABLET PO SCH (08:22)
[2017-05-17] MEDS ORDERED: ALBUTEROL SULFATE 2.5 MG/3 ML NPPB PRN (09:30)
[2017-05-17 20:20] VITALS: BP 132/77
[2017-05-17] MEDS: ENOXAPARIN 40 MG/0.4 ML SQ SCH (21:18)
[2017-05-18 01:14] VITALS: BP 118/73
[2017-05-18] MEDS: LEVOTHYROXINE 150 MCG TABLET PO SCH (06:27)
[2017-05-18] MEDS: ASPIRIN 81 MG TABLET EC PO SCH (06:28)
[2017-05-18 07:37] VITALS: BP 114/78
[2017-05-18] MEDS: ALBUTEROL/IPRATROPIUM 2.5MG/0.5MG, 3 ML NPPB SCH ×4 (07:55→19:58)
[2017-05-18] MEDS ORDERED: ASPI-621 PO (08:57)
[2017-05-18] MEDS ORDERED: CEFD300C37 PO (08:57)
[2017-05-18] MEDS ORDERED: TORS20TA PO (08:57)
[2017-05-18] MEDS: INSULIN LISPRO 100 UNITS/ML, PEN MEDIUM DOSE SS SQ-INSULIN SCH ×4 (09:26→21:18)
[2017-05-18] MEDS: TORSEMIDE 20 MG TABLET PO SCH (10:11)
[2017-05-18] MEDS: CEFDINIR 300 MG CAPSULE PO SCH ×2 (10:11→21:17)
[2017-05-18] MEDS: AMLODIPINE 5 MG TABLET PO SCH (10:11)
[2017-05-18 13:25] VITALS: BP 118/80
[2017-05-18 20:10] VITALS: BP 121/68
[2017-05-18] MEDS: ENOXAPARIN 40 MG/0.4 ML SQ SCH (21:17)
[2017-05-19 01:07] VITALS: BP 120/72
[2017-05-19] MEDS: LEVOTHYROXINE 150 MCG TABLET PO SCH (06:21)
[2017-05-19] MEDS: ASPIRIN 81 MG TABLET EC PO SCH (06:21)
[2017-05-19 06:45] VITALS: BP 124/72
[2017-05-19] MEDS: INSULIN LISPRO 100 UNITS/ML, PEN MEDIUM DOSE SS SQ-INSULIN SCH ×2 (07:00→11:00)
[2017-05-19] MEDS: ALBUTEROL/IPRATROPIUM 2.5MG/0.5MG, 3 ML NPPB SCH (07:50)
[2017-05-19] MEDS: CEFDINIR 300 MG CAPSULE PO SCH (10:53)
[2017-05-19] MEDS: AMLODIPINE 5 MG TABLET PO SCH (10:54)
[2017-05-19] MEDS: TORSEMIDE 20 MG TABLET PO SCH (10:54)
[2017-05-19 12:46] VITALS: BP 133/80
== END 2017-05-19 14:39 | DRG 177 ==
LOC: ED 15:48 → EDIP 16:56 → 5SO 19:51 → CCU 05-02 11:30 → ICU 05-07 22:49 → 4EST 05-08 19:52
PROVIDERS: ADMIT Internal Medicine; ATTEND Internal Medicine
PROC: 0T9B70Z Drainage of Bladder with Drainage Device, Via Natural or Artificial Opening (ICD-10-PCS; principal; 2017-05-02)
DX: J15.6 Pneumonia due to other Gram-negative bacteria (principal); I50.33 Acute on chronic diastolic (congestive) heart failure; J96.01 Acute respiratory failure with hypoxia; N17.0 Acute kidney failure with tubular necrosis; E87.4 Mixed disorder of acid-base balance; E11.22 Type 2 diabetes mellitus with diabetic chronic kidney disease; D75.1 Secondary polycythemia; E87.0 Hyperosmolality and hypernatremia; I13.0 Hypertensive heart and chronic kidney disease with heart failure and stage 1 through stage 4 chronic kidney disease, or unspecified chronic kidney disease; J44.0 Chronic obstructive pulmonary disease with (acute) lower respiratory infection; J44.1 Chronic obstructive pulmonary disease with (acute) exacerbation; J98.11 Atelectasis; N39.0 Urinary tract infection, site not specified; E11.65 Type 2 diabetes mellitus with hyperglycemia; J84.10 Pulmonary fibrosis, unspecified; I12.9 Hypertensive chronic kidney disease with stage 1 through stage 4 chronic kidney disease, or unspecified chronic kidney disease; E03.9 Hypothyroidism, unspecified; N18.9 Chronic kidney disease, unspecified; B96.1 Klebsiella pneumoniae [K. pneumoniae] as the cause of diseases classified elsewhere; B96.89 Other specified bacterial agents as the cause of diseases classified elsewhere; E66.01 Morbid (severe) obesity due to excess calories; I25.10 Atherosclerotic heart disease of native coronary artery without angina pectoris; I27.20 Pulmonary hypertension, unspecified; I70.0 Atherosclerosis of aorta; N18.2 Chronic kidney disease, stage 2 (mild); N40.1 Benign prostatic hyperplasia with lower urinary tract symptoms; R32 Unspecified urinary incontinence; T38.0X5A Adverse effect of glucocorticoids and synthetic analogues, initial encounter; Z87.891 Personal history of nicotine dependence; Z90.79 Acquired absence of other genital organ(s); Z79.4 Long term (current) use of insulin; Z88.8 Allergy status to other drugs, medicaments and biological substances
CPT/HCPCS: 36415; 36600; 71045; 71250; 76770; 80048; 80053; 80061; 81001; 82306; 82803; 82962; 83036; 83540; 83550; 83605; 83735; 83880; 84100; 84134; 84439; 84443; 84484; 84550; 85025; 85379; 87040; 87070; 87077; 87081; 87086; 87186; 87205; 93005; 93306; 93970; 94640; 96374; J0696; J1650; J1940; J2020; J2543; J3370; J7620; J1815; J2930; J7040

== ENCOUNTER → 2017-07-20 | Outpatient (CLI) | payer OTHER ==
[~2017-07-20] MED LIST changes: +AMLO5TAB2 PO; +ASPI-621 PO; +BISA5TAB5 PO; +CEFD300C37 PO; +LEVO150T5 PO; +MELA5TAB19 PO; -OMNIPAQUE 350 MG/ML, 100ML BOTTLE ONE; +PRAZ2CAP2 PO; +TORS20TA PO
== END ==
LOC: CFH 09:47
PROVIDERS: ATTEND Internal Medicine
DX: J44.0 Chronic obstructive pulmonary disease with (acute) lower respiratory infection (principal); I25.10 Atherosclerotic heart disease of native coronary artery without angina pectoris; J43.9 Emphysema, unspecified; Z87.01 Personal history of pneumonia (recurrent)
CPT/HCPCS: 71250

== ENCOUNTER 2017-10-27 19:52 | Inpatient (IN) | payer OTHER ==
[~2017-10-27] VITALS: Ht 177.8 cm; Wt 114.6 kg
[~2017-10-27 19:52] MED LIST changes: -AMLO5TAB2 PO; +AMLO5TAB7 PO
[2017-10-27] MEDS ORDERED: ACETAMINOPHEN 500 MG TABLET PO ONE (20:00)
[2017-10-27] MEDS ORDERED: UMEC1DIS INH (20:17)
[2017-10-27] MEDS ORDERED: ALBU8.5H8 INH (20:17)
[2017-10-27] MEDS ORDERED: CEFTRIAXONE 2 GM in SODIUM CHLORIDE 0.9% 50 ML IV ONE (20:30)
[2017-10-27] MEDS ORDERED: CEFTRIAXONE 2 GM in SODIUM CHLORIDE 0.9% 50 ML IV SCH (20:30)
[2017-10-27] MEDS ORDERED: AZITHROMYCIN 500 MG in SODIUM CHLORIDE 0.9% 250 ML IV ONE (20:30)
[2017-10-27 20:33] LABS: BASOPHILS # (AUTO) 0.01 x10^3/uL (0-0.1); BASOPHILS % (AUTO) 0 % (0-1); EOSINOPHILS # (AUTO) 0.23 x10^3/uL (0-0.4); EOSINOPHILS % (AUTO) 2 % (1-7); LYMPHOCYTES # (AUTO) 0.74 x10^3/uL (1-3.4); LYMPHOCYTES % (AUTO) 6 % (22-44); MD NO; MEAN CORPUSCULAR HEMOGLOBIN 28.4 pg (27.5-34.5); MEAN CORPUSCULAR HGB CONC 32.5 g/dL (33.2-36.2); MEAN CORPUSCULAR VOLUME 87.4 fL (81-97); MONOCYTES # (AUTO) 1.31 x10^3/uL (0.2-0.8); MONOCYTES % (AUTO) 11 % (2-9); NEUTROPHILS # (AUTO) 10.04 x10^3/uL (1.8-6.8); NEUTROPHILS % (AUTO) 81 % (42-75); PLATELET COUNT 183 x10^3/uL (130-400); RED BLOOD COUNT 5.54 x10^6/uL (4.38-5.82); RED CELL DISTRIBUTION WIDTH 13.4 % (9.4-14.8)
[2017-10-27] MEDS ORDERED: ACETAMINOPHEN 500 MG TABLET ONE (20:38)
[2017-10-27 20:40] LABS: INTERNATIONAL NORMALIZED RATIO 1.1 (0.93-1.1); PROTHROMBIN TIME 11.4 Seconds (9.6-11.5)
[2017-10-27 20:42] LABS: ALANINE AMINOTRANSFERASE 16 U/L (12-78); ALBUMIN 2.6 g/dL (3.4-5.0); ANION GAP 5 mmol/L (5-15); CALCIUM 8.6 mg/dL (8.5-10.1); CHLORIDE 103 mmol/L (98-107)
[2017-10-27 20:44] LABS: ALKALINE PHOSPHATASE 67 U/L (45-117); BILIRUBIN,TOTAL 0.8 mg/dL (0.2-1.0); TOTAL PROTEIN 7.9 g/dL (6.4-8.2)
[2017-10-27] MEDS ORDERED: SODIUM CHLORIDE 0.9% 1,000ML IVBOLUS ONE (21:00)
[2017-10-27] MEDS ORDERED: SODIUM CHLORIDE 0.9%, 500ML IVBOLUS ONE (21:00)
[2017-10-27] MEDS ORDERED: GUAIFENESIN/DM 200-20MG, 10ML UDC PO PRN (22:00)
[2017-10-27] MEDS ORDERED: ENOXAPARIN 40 MG/0.4 ML SQ SCH (22:00)
[2017-10-27] MEDS ORDERED: PHARMACY MAY ADJ FOR RENAL FX MC PRN (22:00)
[2017-10-27] MEDS ORDERED: LABETALOL 5MG/ML, 20ML IVPush PRN (22:00)
[2017-10-27] MEDS ORDERED: ONDANSETRON 2MG/ML, 2ML IVPush PRN (22:00)
[2017-10-27] MEDS ORDERED: ALBUTEROL/IPRATROPIUM 2.5MG/0.5MG, 3 ML NPPB PRN (22:30)
[2017-10-27] MEDS: CEFTRIAXONE 1,000 MG in SODIUM CHLORIDE 0.9% 50 ML IV SCH (23:19)
[2017-10-27 23:21] VITALS: BP 99/61
[2017-10-28] MEDS: DOXYCYCLINE 100 MG in DEXTROSE 5% 250 ML IV SCH ×3 (00:38→22:58)
[2017-10-28 01:22] VITALS: BP 110/67
[2017-10-28 03:33] LABS: MICROSCOPIC AUTO
[2017-10-28 03:35] LABS: CULTURE INDICATED? YES
[2017-10-28] MEDS: ACETAMINOPHEN 325 MG TABLET PO PRN ×2 (04:21→14:28)
[2017-10-28] MEDS: ASPIRIN 81 MG TABLET EC PO SCH (05:38)
[2017-10-28 05:40] LABS: BASOPHILS # (AUTO) 0.02 x10^3/uL (0-0.1); BASOPHILS % (AUTO) 0 % (0-1); EOSINOPHILS # (AUTO) 0.28 x10^3/uL (0-0.4); EOSINOPHILS % (AUTO) 2 % (1-7); LYMPHOCYTES # (AUTO) 0.99 x10^3/uL (1-3.4); LYMPHOCYTES % (AUTO) 8 % (22-44); MD NO; MEAN CORPUSCULAR HEMOGLOBIN 29.1 pg (27.5-34.5); MEAN CORPUSCULAR HGB CONC 32.8 g/dL (33.2-36.2); MEAN CORPUSCULAR VOLUME 88.7 fL (81-97); MEAN PLATELET VOLUME 10.4 fL (7.4-10.4); MONOCYTES # (AUTO) 1.41 x10^3/uL (0.2-0.8); MONOCYTES % (AUTO) 12 % (2-9); NEUTROPHILS # (AUTO) 9.47 x10^3/uL (1.8-6.8); NEUTROPHILS % (AUTO) 78 % (42-75); PLATELET COUNT 178 x10^3/uL (130-400); RED BLOOD COUNT 5.72 x10^6/uL (4.38-5.82); RED CELL DISTRIBUTION WIDTH 13.4 % (9.4-14.8)
[2017-10-28 05:46] LABS: CHLORIDE 103 mmol/L (98-107)
[2017-10-28 06:04] LABS: ALANINE AMINOTRANSFERASE 18 U/L (12-78); ALBUMIN 2.7 g/dL (3.4-5.0); ALKALINE PHOSPHATASE 77 U/L (45-117); ANION GAP 6 mmol/L (5-15); BILIRUBIN,TOTAL 0.5 mg/dL (0.2-1.0); CALCIUM 8.6 mg/dL (8.5-10.1); TOTAL PROTEIN 8.8 g/dL (6.4-8.2)
[2017-10-28 06:49] VITALS: BP 124/68
[2017-10-28] MEDS: LEVOTHYROXINE 150 MCG TABLET PO SCH (08:45)
[2017-10-28] MEDS ORDERED: TORSEMIDE 20 MG TABLET PO SCH (09:00)
[2017-10-28] MEDS ORDERED: HEPARIN 5,000 UNITS/ML, 1ML SQ SCH (10:30)
[2017-10-28] MEDS: SODIUM CHLORIDE 0.9% 1,000 ML IV SCH (10:41)
[2017-10-28 13:19] VITALS: BP 175/73
[2017-10-28] MEDS: LACTOBACILLUS CHEW TABLET PO SCH ×2 (17:38→20:44)
[2017-10-28 17:43] VITALS: BP 119/70
[2017-10-28 19:36] VITALS: BP 128/69
[2017-10-28] MEDS: CEFTRIAXONE 1,000 MG in SODIUM CHLORIDE 0.9% 50 ML IV SCH (22:17)
[2017-10-29 01:36] VITALS: BP 158/80
[2017-10-29] MEDS: ASPIRIN 81 MG TABLET EC PO SCH (04:48)
[2017-10-29] MEDS: SODIUM CHLORIDE 0.9% 1,000 ML IV SCH (04:48)
[2017-10-29] MEDS ORDERED: PHARMACY MAY ADJ FOR RENAL FX MC PRN (05:00)
[2017-10-29 05:57] LABS: BASOPHILS # (AUTO) 0.04 x10^3/uL (0-0.1); BASOPHILS % (AUTO) 0 % (0-1); EOSINOPHILS # (AUTO) 0.32 x10^3/uL (0-0.4); EOSINOPHILS % (AUTO) 3 % (1-7); LYMPHOCYTES # (AUTO) 0.73 x10^3/uL (1-3.4); LYMPHOCYTES % (AUTO) 6 % (22-44); MD NO; MEAN CORPUSCULAR HGB CONC 32.9 g/dL (33.2-36.2); MEAN CORPUSCULAR VOLUME 87.9 fL (81-97); MEAN PLATELET VOLUME 10.2 fL (7.4-10.4); MONOCYTES # (AUTO) 1.43 x10^3/uL (0.2-0.8); MONOCYTES % (AUTO) 12 % (2-9); NEUTROPHILS # (AUTO) 9.18 x10^3/uL (1.8-6.8); NEUTROPHILS % (AUTO) 79 % (42-75); PLATELET COUNT 176 x10^3/uL (130-400); RED BLOOD COUNT 5.17 x10^6/uL (4.38-5.82); RED CELL DISTRIBUTION WIDTH 13.3 % (9.4-14.8)
[2017-10-29] MEDS: MEROPENEM 1 GM in SODIUM CHLORIDE 0.9% 100 ML IV SCH ×2 (06:01→17:06)
[2017-10-29 06:09] LABS: ALANINE AMINOTRANSFERASE 13 U/L (12-78); ALBUMIN 2.2 g/dL (3.4-5.0); ANION GAP 8 mmol/L (5-15); CALCIUM 8.2 mg/dL (8.5-10.1); CHLORIDE 103 mmol/L (98-107); CREATININE 1.86 mg/dL (0.7-1.3)
[2017-10-29 06:11] LABS: ALKALINE PHOSPHATASE 64 U/L (45-117); BILIRUBIN,TOTAL 0.4 mg/dL (0.2-1.0)
[2017-10-29 07:06] VITALS: BP 152/64
[2017-10-29] MEDS: LACTOBACILLUS CHEW TABLET PO SCH ×3 (08:17→20:29)
[2017-10-29] MEDS: HEPARIN 5,000 UNITS/ML, 1ML SQ SCH ×2 (08:18→17:07)
[2017-10-29] MEDS: LEVOTHYROXINE 150 MCG TABLET PO SCH (08:18)
[2017-10-29] MEDS: DOXYCYCLINE 100 MG in DEXTROSE 5% 250 ML IV SCH ×2 (11:16→22:41)
[2017-10-29 12:51] VITALS: BP 151/73
[2017-10-29 19:36] VITALS: BP 167/84
[2017-10-30] MEDS: HEPARIN 5,000 UNITS/ML, 1ML SQ SCH ×3 (00:49→17:01)
[2017-10-30 01:45] VITALS: BP 170/90
[2017-10-30 01:50] VITALS: BP 143/73
[2017-10-30 04:59] LABS: BASOPHILS # (AUTO) 0.03 x10^3/uL (0-0.1); BASOPHILS % (AUTO) 0 % (0-1); EOSINOPHILS # (AUTO) 0.47 x10^3/uL (0-0.4); EOSINOPHILS % (AUTO) 5 % (1-7); LYMPHOCYTES # (AUTO) 0.75 x10^3/uL (1-3.4); LYMPHOCYTES % (AUTO) 7 % (22-44); MD NO; MEAN CORPUSCULAR HEMOGLOBIN 29.3 pg (27.5-34.5); MEAN CORPUSCULAR HGB CONC 33.5 g/dL (33.2-36.2); MEAN CORPUSCULAR VOLUME 87.6 fL (81-97); MEAN PLATELET VOLUME 9.9 fL (7.4-10.4); MONOCYTES # (AUTO) 1.18 x10^3/uL (0.2-0.8); MONOCYTES % (AUTO) 11 % (2-9); NEUTROPHILS # (AUTO) 7.95 x10^3/uL (1.8-6.8); NEUTROPHILS % (AUTO) 77 % (42-75); PLATELET COUNT 189 x10^3/uL (130-400); RED BLOOD COUNT 5.23 x10^6/uL (4.38-5.82); RED CELL DISTRIBUTION WIDTH 12.9 % (9.4-14.8)
[2017-10-30 05:08] LABS: ANION GAP 7 mmol/L (5-15); CALCIUM 8.1 mg/dL (8.5-10.1); CHLORIDE 104 mmol/L (98-107)
[2017-10-30] MEDS: MEROPENEM 1 GM in SODIUM CHLORIDE 0.9% 100 ML IV SCH ×2 (05:08→17:00)
[2017-10-30 05:09] LABS: CREATININE 1.76 mg/dL (0.7-1.3)
[2017-10-30] MEDS: ASPIRIN 81 MG TABLET EC PO SCH (05:56)
[2017-10-30 06:41] VITALS: BP 154/88
[2017-10-30] MEDS: LEVOTHYROXINE 150 MCG TABLET PO SCH (08:51)
[2017-10-30] MEDS: LACTOBACILLUS CHEW TABLET PO SCH ×3 (08:51→20:37)
[2017-10-30] MEDS: DOXYCYCLINE 100 MG in DEXTROSE 5% 250 ML IV SCH (11:12)
[2017-10-30 12:34] VITALS: BP 143/96
[2017-10-30 20:00] VITALS: BP 159/82
[2017-10-31] MEDS: HEPARIN 5,000 UNITS/ML, 1ML SQ SCH ×3 (01:14→16:38)
[2017-10-31 02:20] VITALS: BP 148/66
[2017-10-31] MEDS: MEROPENEM 1 GM in SODIUM CHLORIDE 0.9% 100 ML IV SCH (05:15)
[2017-10-31] MEDS: ASPIRIN 81 MG TABLET EC PO SCH (05:27)
[2017-10-31 05:38] LABS: BASOPHILS # (AUTO) 0.06 x10^3/uL (0-0.1); BASOPHILS % (AUTO) 1 % (0-1); EOSINOPHILS # (AUTO) 0.46 x10^3/uL (0-0.4); EOSINOPHILS % (AUTO) 5 % (1-7); LYMPHOCYTES # (AUTO) 0.63 x10^3/uL (1-3.4); LYMPHOCYTES % (AUTO) 7 % (22-44); MD NO; MEAN CORPUSCULAR HEMOGLOBIN 28.8 pg (27.5-34.5); MEAN CORPUSCULAR HGB CONC 33.1 g/dL (33.2-36.2); MEAN CORPUSCULAR VOLUME 86.9 fL (81-97); MONOCYTES # (AUTO) 0.99 x10^3/uL (0.2-0.8); MONOCYTES % (AUTO) 11 % (2-9); NEUTROPHILS # (AUTO) 6.76 x10^3/uL (1.8-6.8); NEUTROPHILS % (AUTO) 76 % (42-75); PLATELET COUNT 201 x10^3/uL (130-400); RED BLOOD COUNT 5.37 x10^6/uL (4.38-5.82); RED CELL DISTRIBUTION WIDTH 13.2 % (9.4-14.8)
[2017-10-31 05:47] LABS: ANION GAP 6 mmol/L (5-15); CALCIUM 8.4 mg/dL (8.5-10.1); CHLORIDE 104 mmol/L (98-107); CREATININE 1.69 mg/dL (0.7-1.3)
[2017-10-31 08:24] VITALS: BP 158/91
[2017-10-31] MEDS: LEVOTHYROXINE 150 MCG TABLET PO SCH (08:28)
[2017-10-31] MEDS: LACTOBACILLUS CHEW TABLET PO SCH ×3 (08:28→21:29)
[2017-10-31] MEDS ORDERED: FUROSEMIDE 20 MG/2 ML ONE (09:30)
[2017-10-31 15:38] VITALS: BP 145/86
[2017-10-31 19:07] VITALS: BP 122/78
[2017-10-31] MEDS: SULFAMETH./TRIMETHOPRIM DS 800MG/160MG TABLET PO SCH (21:29)
[2017-11-01] MEDS: HEPARIN 5,000 UNITS/ML, 1ML SQ SCH ×2 (01:09→10:23)
[2017-11-01 01:19] VITALS: BP 135/82
[2017-11-01] MEDS: ASPIRIN 81 MG TABLET EC PO SCH (06:18)
[2017-11-01 06:46] VITALS: BP 148/78
[2017-11-01] MEDS: AMLODIPINE 5 MG TABLET PO SCH ×2 (08:44→08:55)
[2017-11-01] MEDS: LACTOBACILLUS CHEW TABLET PO SCH (08:44)
[2017-11-01] MEDS: SULFAMETH./TRIMETHOPRIM DS 800MG/160MG TABLET PO SCH (08:51)
[2017-11-01] MEDS: LEVOTHYROXINE 150 MCG TABLET PO SCH (08:51)
[2017-11-01] MEDS ORDERED: AMLODIPINE 5 MG TABLET PO SCH (10:00)
[2017-11-01 12:55] VITALS: BP 134/74
[2017-11-01] MEDS ORDERED: SULF-169 PO (12:57)
[2017-11-02] MEDS ORDERED: LEVOTHYROXINE 150 MCG TABLET PO SCH (06:00)
== END 2017-11-01 15:00 | disposition home health service (06) | DRG 871 ==
LOC: ED 20:35 → EDIP 20:49 → 4WST 22:22
PROVIDERS: ADMIT Internal Medicine; ATTEND Internal Medicine
DX: A41.89 Other specified sepsis (principal); J18.9 Pneumonia, unspecified organism; J96.11 Chronic respiratory failure with hypoxia; N17.9 Acute kidney failure, unspecified; J44.0 Chronic obstructive pulmonary disease with (acute) lower respiratory infection; N13.6 Pyonephrosis; I11.0 Hypertensive heart disease with heart failure; R65.20 Severe sepsis without septic shock; B96.4 Proteus (mirabilis) (morganii) as the cause of diseases classified elsewhere; E03.9 Hypothyroidism, unspecified; E11.65 Type 2 diabetes mellitus with hyperglycemia; I50.9 Heart failure, unspecified; T38.0X5A Adverse effect of glucocorticoids and synthetic analogues, initial encounter; Z85.46 Personal history of malignant neoplasm of prostate; Z87.891 Personal history of nicotine dependence; Z88.8 Allergy status to other drugs, medicaments and biological substances; Z90.79 Acquired absence of other genital organ(s); Z92.3 Personal history of irradiation; Z99.81 Dependence on supplemental oxygen
CPT/HCPCS: 36415; 71045; 74176; 76770; 78708; 80048; 80053; 81001; 83605; 84145; 84443; 85025; 85610; 85730; 87040; 87070; 87077; 87086; 87186; 87205; 93005; 96365; 99291; G0103; G0378; J0456; J0696; J1644; J1650; J2185; J7060; J7620; A9562; C9898; J1940; J7030; J7050

== ENCOUNTER 2018-01-04 10:26 | Emergency (ER) | payer OTHER ==
[~2018-01-04] VITALS: Ht 177.8 cm; Wt 111.0 kg
[~2018-01-04 10:26] MED LIST changes: +ALBU8.5H8 INH; +SULF-169 PO; +UMEC1DIS INH
[2018-01-04 11:58] LABS: ANION GAP 4 mmol/L (5-15); CALCIUM 8.9 mg/dL (8.5-10.1); CHLORIDE 107 mmol/L (98-107); CREATININE 1.93 mg/dL (0.7-1.3)
[2018-01-04 12:00] LABS: BASOPHILS # (AUTO) 0.09 x10^3/uL (0-0.1); BASOPHILS % (AUTO) 1 % (0-1); EOSINOPHILS # (AUTO) 0.44 x10^3/uL (0-0.4); EOSINOPHILS % (AUTO) 6 % (1-7); LYMPHOCYTES # (AUTO) 0.75 x10^3/uL (1-3.4); LYMPHOCYTES % (AUTO) 10 % (22-44); MD NO; MEAN CORPUSCULAR HEMOGLOBIN 27.8 pg (27.5-34.5); MEAN CORPUSCULAR HGB CONC 32.7 g/dL (33.2-36.2); MEAN PLATELET VOLUME 9.8 fL (7.4-10.4); MONOCYTES # (AUTO) 0.68 x10^3/uL (0.2-0.8); MONOCYTES % (AUTO) 9 % (2-9); NEUTROPHILS # (AUTO) 5.63 x10^3/uL (1.8-6.8); NEUTROPHILS % (AUTO) 74 % (42-75); PLATELET COUNT 247 x10^3/uL (130-400); RED BLOOD COUNT 5.35 x10^6/uL (4.38-5.82); RED CELL DISTRIBUTION WIDTH 15.1 % (9.4-14.8)
[2018-01-04 12:02] LABS: TROPONIN I < 0.015 ng/mL (0.000-0.045)
[2018-01-04] MEDS ORDERED: LIDOCAINE 1%-EPI 1:100K, 50ML INFIL ONE (13:30)
[2018-01-04] MEDS ORDERED: MICROFIBRILLAR COLLAGEN 1 GM TP ONE ×2 (13:41→14:00)
[2018-01-04] MEDS ORDERED: LIDOCAINE-MPF 1%, 5ML ONE (13:49)
[2018-01-04 15:04] LABS: TROPONIN I < 0.015 ng/mL (0.000-0.045)
[2018-01-04 16:00] VITALS: BP 165/90
== END 2018-01-04 16:02 | disposition home or self-care (01) ==
LOC: ED 13:39
DX: R55 Syncope and collapse (principal); R11.2 Nausea with vomiting, unspecified; I11.0 Hypertensive heart disease with heart failure; I50.9 Heart failure, unspecified; Z87.891 Personal history of nicotine dependence
CPT/HCPCS: 36415; 71045; 80048; 82040; 84484; 85025; 93005; 99285

== ENCOUNTER → 2018-01-07 | Outpatient (CLI) | payer OTHER | END | disposition home or self-care (01) | LOC: WOUND 13:24 | PROVIDERS: ATTEND Internal Medicine | DX: L72.3 Sebaceous cyst (principal); S41.112A Laceration without foreign body of left upper arm, initial encounter; I11.0 Hypertensive heart disease with heart failure; I50.9 Heart failure, unspecified; J44.9 Chronic obstructive pulmonary disease, unspecified; E66.9 Obesity, unspecified; Z68.34 Body mass index [BMI] 34.0-34.9, adult; Z85.46 Personal history of malignant neoplasm of prostate; Z87.891 Personal history of nicotine dependence; X58.XXXA Exposure to other specified factors, initial encounter; Y93.9 Activity, unspecified; Y92.89 Other specified places as the place of occurrence of the external cause; Y99.8 Other external cause status | CPT/HCPCS: 97597; 99215 ==

== ENCOUNTER → 2018-01-14 | Outpatient (CLI) | payer OTHER | END | disposition home or self-care (01) | LOC: WOUND 13:09 | PROVIDERS: ATTEND Internal Medicine | DX: S41.112D Laceration without foreign body of left upper arm, subsequent encounter (principal); I11.0 Hypertensive heart disease with heart failure; I50.9 Heart failure, unspecified; L72.3 Sebaceous cyst; J44.9 Chronic obstructive pulmonary disease, unspecified; E66.9 Obesity, unspecified; Z68.34 Body mass index [BMI] 34.0-34.9, adult; Z85.46 Personal history of malignant neoplasm of prostate; Z87.891 Personal history of nicotine dependence; X58.XXXD Exposure to other specified factors, subsequent encounter | CPT/HCPCS: 97597 ==

== ENCOUNTER 2018-01-21 13:49 | Outpatient (CLI) | payer OTHER ==
[~2018-01-21 13:49] MED LIST changes: +AMLO-150 PO; -AMLO5TAB7 PO; -ASPI-621 PO; +ASPI81TA45 PO
== END 2018-01-28 12:58 | disposition home or self-care (01) ==
LOC: WOUND 13:49
PROVIDERS: ATTEND Internal Medicine
DX: S41.112D Laceration without foreign body of left upper arm, subsequent encounter (principal); L72.3 Sebaceous cyst; I11.0 Hypertensive heart disease with heart failure; I50.9 Heart failure, unspecified; J44.9 Chronic obstructive pulmonary disease, unspecified; E66.9 Obesity, unspecified; Z68.34 Body mass index [BMI] 34.0-34.9, adult; Z85.46 Personal history of malignant neoplasm of prostate; Z87.891 Personal history of nicotine dependence; X58.XXXD Exposure to other specified factors, subsequent encounter
CPT/HCPCS: 97597

== ENCOUNTER → 2018-01-28 | Outpatient (CLI) | payer OTHER | END | disposition home or self-care (01) | LOC: WOUND 13:33 | PROVIDERS: ATTEND Internal Medicine | DX: L72.3 Sebaceous cyst (principal); I11.0 Hypertensive heart disease with heart failure; I50.9 Heart failure, unspecified; J44.9 Chronic obstructive pulmonary disease, unspecified; E66.9 Obesity, unspecified; Z85.46 Personal history of malignant neoplasm of prostate; Z87.891 Personal history of nicotine dependence | CPT/HCPCS: 97597 ==

== ENCOUNTER → 2018-02-04 | Outpatient (CLI) | payer OTHER | END | disposition home or self-care (01) | LOC: WOUND 13:23 | PROVIDERS: ATTEND Internal Medicine | DX: S41.012D Laceration without foreign body of left shoulder, subsequent encounter (principal); J44.9 Chronic obstructive pulmonary disease, unspecified; L72.3 Sebaceous cyst; I11.0 Hypertensive heart disease with heart failure; I50.9 Heart failure, unspecified; E66.9 Obesity, unspecified; Z85.46 Personal history of malignant neoplasm of prostate; Z87.891 Personal history of nicotine dependence; Z68.34 Body mass index [BMI] 34.0-34.9, adult; X58.XXXD Exposure to other specified factors, subsequent encounter | CPT/HCPCS: 97597 ==

== ENCOUNTER → 2018-02-11 | Outpatient (CLI) | payer OTHER | END | disposition home or self-care (01) | LOC: WOUND 13:24 | PROVIDERS: ATTEND Internal Medicine | DX: S41.012D Laceration without foreign body of left shoulder, subsequent encounter (principal); J44.9 Chronic obstructive pulmonary disease, unspecified; L72.3 Sebaceous cyst; I11.0 Hypertensive heart disease with heart failure; I50.9 Heart failure, unspecified; E66.9 Obesity, unspecified; Z85.46 Personal history of malignant neoplasm of prostate; Z87.891 Personal history of nicotine dependence; Z68.34 Body mass index [BMI] 34.0-34.9, adult; X58.XXXD Exposure to other specified factors, subsequent encounter | CPT/HCPCS: 97597 ==

== ENCOUNTER → 2018-02-25 | Outpatient (CLI) | payer OTHER | END | disposition home or self-care (01) | LOC: WOUND 13:13 | PROVIDERS: ATTEND Internal Medicine | DX: S41.012D Laceration without foreign body of left shoulder, subsequent encounter (principal); J44.9 Chronic obstructive pulmonary disease, unspecified; L72.3 Sebaceous cyst; I11.0 Hypertensive heart disease with heart failure; I50.9 Heart failure, unspecified; E66.9 Obesity, unspecified; Z85.46 Personal history of malignant neoplasm of prostate; Z87.891 Personal history of nicotine dependence; Z68.34 Body mass index [BMI] 34.0-34.9, adult; X58.XXXD Exposure to other specified factors, subsequent encounter | CPT/HCPCS: 97597 ==

== ENCOUNTER 2018-03-11 12:58 | Outpatient (CLI) | payer MEDICARE, OTHER | END 2018-03-11 23:59 | disposition home or self-care (01) | LOC: WOUND 12:58 | PROVIDERS: ATTEND Internal Medicine | DX: T81.89XD Other complications of procedures, not elsewhere classified, subsequent encounter (principal); L72.3 Sebaceous cyst; I11.0 Hypertensive heart disease with heart failure; I50.9 Heart failure, unspecified; E66.9 Obesity, unspecified; J43.9 Emphysema, unspecified; Z85.46 Personal history of malignant neoplasm of prostate; Z87.891 Personal history of nicotine dependence; Z68.34 Body mass index [BMI] 34.0-34.9, adult; Y83.8 Other surgical procedures as the cause of abnormal reaction of the patient, or of later complication, without mention of misadventure at the time of the procedure | CPT/HCPCS: 99214 ==

== ENCOUNTER 2018-05-08 10:34 | Inpatient (IN) | payer MEDICARE ==
[~2018-05-08] VITALS: Ht 177.8 cm; Wt 104.0 kg
[2018-05-08 11:32] LABS: BASOPHILS # (AUTO) 0.08 x10^3/uL (0-0.1); BASOPHILS % (AUTO) 1 % (0-1); EOSINOPHILS # (AUTO) 0.33 x10^3/uL (0-0.4); EOSINOPHILS % (AUTO) 2 % (1-7); LYMPHOCYTES # (AUTO) 0.82 x10^3/uL (1-3.4); LYMPHOCYTES % (AUTO) 6 % (22-44); MD NO; MEAN CORPUSCULAR HGB CONC 32.3 g/dL (33.2-36.2); MEAN CORPUSCULAR VOLUME 86.9 fL (81-97); MEAN PLATELET VOLUME 9.1 fL (7.4-10.4); MONOCYTES # (AUTO) 0.69 x10^3/uL (0.2-0.8); MONOCYTES % (AUTO) 5 % (2-9); NEUTROPHILS % (AUTO) 87 % (42-75); PLATELET COUNT 391 x10^3/uL (130-400); RED BLOOD COUNT 5.46 x10^6/uL (4.38-5.82); RED CELL DISTRIBUTION WIDTH 13.9 % (9.4-14.8)
[2018-05-08 11:42] LABS: ALBUMIN 2.8 g/dL (3.4-5.0); ANION GAP 5 mmol/L (5-15); CALCIUM 10.5 mg/dL (8.5-10.1); CHLORIDE 107 mmol/L (98-107); CREATININE 2.57 mg/dL (0.7-1.3)
--- NOTE | 2018-05-08 12:51 | NUR ---
battery recharger: pt to ed room 22 from lobby at this time
[2018-05-08] MEDS ORDERED: MORPHINE SULFATE 4 MG/ML, 1ML ONE (14:28)
[2018-05-08] MEDS ORDERED: morphine SULFATE 10 MG/ML, 1ML IVPush ONE (14:30)
[2018-05-08 14:34] LABS: MICROSCOPIC INDICATED
[2018-05-08 14:36] LABS: CULTURE INDICATED? YES
[2018-05-08] MEDS ORDERED: CEFTRIAXONE PMX 2GM/50ML 50 ML IV ONE (15:30)
[2018-05-08] MEDS ORDERED: INDA1CAP2 INH (15:42)
[2018-05-08] MEDS ORDERED: NITR100C6 PO (15:45)
[2018-05-08] MEDS ORDERED: LEVOFLOXACIN/PMX 750MG/150ML 150 ML IV SCH (16:00)
[2018-05-08] MEDS ORDERED: LEVOFLOXACIN/PMX 750MG/150ML 150 ML ONE (16:01)
--- NOTE | 2018-05-08 16:42 | NUR ---
meal tray given, levaquin infusing
[2018-05-08 17:27] VITALS: BP 111/53
[2018-05-08] MEDS ORDERED: ACETAMINOPHEN 325 MG TABLET PO PRN (18:00)
[2018-05-08] MEDS ORDERED: DOCUSATE 100 MG CAPSULE PO PRN (18:00)
[2018-05-08] MEDS ORDERED: POLYETHYLENE GLYCOL 17 GM PACKET PO PRN (18:00)
[2018-05-08] MEDS ORDERED: TEMAZEPAM 15 MG CAPSULE PO PRN (18:00)
[2018-05-08] MEDS ORDERED: ONDANSETRON 2MG/ML, 2ML IVPush PRN (18:00)
[2018-05-08] MEDS: SODIUM CHLORIDE 0.9% 1,000 ML IV SCH (18:03)
[2018-05-08 20:00] VITALS: BP 144/64
[2018-05-09] VITALS: BP 137/65
[2018-05-09 02:09] VITALS: BP 136/68
[2018-05-09 05:51] LABS: BASOPHILS # (AUTO) 0.04 x10^3/uL (0-0.1); BASOPHILS % (AUTO) 0 % (0-1); EOSINOPHILS # (AUTO) 0.52 x10^3/uL (0-0.4); EOSINOPHILS % (AUTO) 4 % (1-7); LYMPHOCYTES # (AUTO) 0.72 x10^3/uL (1-3.4); LYMPHOCYTES % (AUTO) 6 % (22-44); MD NO; MEAN CORPUSCULAR HEMOGLOBIN 28.4 pg (27.5-34.5); MEAN CORPUSCULAR HGB CONC 32.7 g/dL (33.2-36.2); MEAN PLATELET VOLUME 9.3 fL (7.4-10.4); MONOCYTES # (AUTO) 0.91 x10^3/uL (0.2-0.8); MONOCYTES % (AUTO) 7 % (2-9); NEUTROPHILS % (AUTO) 83 % (42-75); PLATELET COUNT 306 x10^3/uL (130-400); RED BLOOD COUNT 5.19 x10^6/uL (4.38-5.82); RED CELL DISTRIBUTION WIDTH 13.9 % (9.4-14.8)
[2018-05-09 05:59] LABS: ANION GAP 5 mmol/L (5-15); CALCIUM 9.8 mg/dL (8.5-10.1); CHLORIDE 108 mmol/L (98-107); CREATININE 2.31 mg/dL (0.7-1.3)
[2018-05-09] MEDS: SODIUM CHLORIDE 0.9% 1,000 ML IV SCH ×2 (06:15→21:18)
[2018-05-09 07:10] VITALS: BP 145/67
[2018-05-09] MEDS ORDERED: LEVOTHYROXINE 75 MCG TABLET ONE (07:42)
[2018-05-09] MEDS: LEVOTHYROXINE 150 MCG TABLET PO SCH (07:45)
[2018-05-09] MEDS: SENNA/DOCUSATE TABLET PO SCH (07:45)
[2018-05-09] MEDS ORDERED: CEFTRIAXONE PMX 1GM/50ML 50 ML IV SCH (13:30)
[2018-05-09 14:30] VITALS: BP 127/70
[2018-05-09] MEDS ORDERED: OPIUM/BELLADONNA SUPP.RECT 16.2-30 MG PR ONE (18:30)
[2018-05-09] MEDS ORDERED: MORPHINE SULFATE 4 MG/ML, 1ML IVPush ONE (18:30)
[2018-05-09 19:26] VITALS: BP 125/56
[2018-05-09] MEDS ORDERED: LIDOCAINE JELLY 2%, 30GM TP ONE (20:00)
[2018-05-10] VITALS: BP 144/56
[2018-05-10 06:47] LABS: BASOPHILS # (AUTO) 0.08 x10^3/uL (0-0.1); BASOPHILS % (AUTO) 1 % (0-1); EOSINOPHILS # (AUTO) 0.59 x10^3/uL (0-0.4); EOSINOPHILS % (AUTO) 5 % (1-7); LYMPHOCYTES # (AUTO) 0.82 x10^3/uL (1-3.4); LYMPHOCYTES % (AUTO) 7 % (22-44); MD NO; MEAN CORPUSCULAR HEMOGLOBIN 28.1 pg (27.5-34.5); MEAN CORPUSCULAR HGB CONC 32.7 g/dL (33.2-36.2); MEAN CORPUSCULAR VOLUME 85.9 fL (81-97); MEAN PLATELET VOLUME 9.5 fL (7.4-10.4); MONOCYTES # (AUTO) 1.11 x10^3/uL (0.2-0.8); MONOCYTES % (AUTO) 9 % (2-9); NEUTROPHILS # (AUTO) 9.99 x10^3/uL (1.8-6.8); NEUTROPHILS % (AUTO) 79 % (42-75); PLATELET COUNT 332 x10^3/uL (130-400); RED BLOOD COUNT 5.01 x10^6/uL (4.38-5.82); RED CELL DISTRIBUTION WIDTH 14.1 % (9.4-14.8)
[2018-05-10 06:59] LABS: ALBUMIN 2.2 g/dL (3.4-5.0); ANION GAP 4 mmol/L (5-15); CALCIUM 10.1 mg/dL (8.5-10.1); CHLORIDE 108 mmol/L (98-107); CREATININE 2.07 mg/dL (0.7-1.3)
[2018-05-10 07:11] VITALS: BP 140/46
[2018-05-10] MEDS ORDERED: LEVOTHYROXINE 75 MCG TABLET ONE (07:59)
[2018-05-10] MEDS: LEVOTHYROXINE 150 MCG TABLET PO SCH (08:02)
[2018-05-10] MEDS: SENNA/DOCUSATE TABLET PO SCH (08:02)
[2018-05-10 12:34] VITALS: BP 119/88
[2018-05-10] MEDS: AMPICILLIN 500 MG in SODIUM CHLORIDE 0.9% 100 ML IV SCH ×2 (13:40→20:00)
[2018-05-10] MEDS: SODIUM CHLORIDE 0.9% 1,000 ML IV SCH (13:55)
[2018-05-10 20:30] VITALS: BP 110/68
[2018-05-11] MEDS: AMPICILLIN 500 MG in SODIUM CHLORIDE 0.9% 100 ML IV SCH ×2 (01:10→07:52)
[2018-05-11 02:48] VITALS: BP 121/80
[2018-05-11 05:33] LABS: BASOPHILS # (AUTO) 0.17 x10^3/uL (0-0.1); BASOPHILS % (AUTO) 1 % (0-1); EOSINOPHILS # (AUTO) 0.75 x10^3/uL (0-0.4); EOSINOPHILS % (AUTO) 6 % (1-7); LYMPHOCYTES # (AUTO) 0.95 x10^3/uL (1-3.4); LYMPHOCYTES % (AUTO) 7 % (22-44); MD NO; MEAN CORPUSCULAR HEMOGLOBIN 28.4 pg (27.5-34.5); MEAN CORPUSCULAR HGB CONC 32.7 g/dL (33.2-36.2); MEAN CORPUSCULAR VOLUME 86.9 fL (81-97); MEAN PLATELET VOLUME 9.6 fL (7.4-10.4); MONOCYTES # (AUTO) 1.16 x10^3/uL (0.2-0.8); MONOCYTES % (AUTO) 9 % (2-9); NEUTROPHILS # (AUTO) 10.07 x10^3/uL (1.8-6.8); NEUTROPHILS % (AUTO) 77 % (42-75); PLATELET COUNT 347 x10^3/uL (130-400); RED BLOOD COUNT 4.95 x10^6/uL (4.38-5.82); RED CELL DISTRIBUTION WIDTH 13.7 % (9.4-14.8)
[2018-05-11 05:34] LABS: ANION GAP 3 mmol/L (5-15); CALCIUM 9.7 mg/dL (8.5-10.1); CHLORIDE 107 mmol/L (98-107)
[2018-05-11] MEDS ORDERED: LEVOTHYROXINE 100 MCG TABLET ONE (08:38)
[2018-05-11] MEDS ORDERED: LEVOTHYROXINE 25 MCG TABLET ONE (08:38)
[2018-05-11] MEDS: SENNA/DOCUSATE TABLET PO SCH (08:42)
[2018-05-11] MEDS: LEVOTHYROXINE 150 MCG TABLET PO SCH (08:42)
[2018-05-11 09:23] VITALS: BP 121/56
[2018-05-11] MEDS ORDERED: AMPI500C2 PO (10:50)
[2018-05-11] MEDS: MAGNESIUM CITRATE 300ML ORAL SOL PO PRN ×2 (10:53→16:30)
[2018-05-11] MEDS: AMPICILLIN 500MG CAPSULE PO SCH ×3 (11:27→20:33)
[2018-05-11 13:48] VITALS: BP 131/66
[2018-05-11] MEDS: SODIUM CHLORIDE 0.9% 1,000 ML IV SCH (15:13)
[2018-05-11 20:36] VITALS: BP 151/79
[2018-05-12 03:50] VITALS: BP 140/76
[2018-05-12] MEDS ORDERED: LEVOTHYROXINE 25 MCG TABLET ONE (06:25)
[2018-05-12] MEDS ORDERED: LEVOTHYROXINE 125 MCG TABLET ONE (06:25)
[2018-05-12] MEDS: LEVOTHYROXINE 150 MCG TABLET PO SCH (06:26)
[2018-05-12 07:35] VITALS: BP 123/63
[2018-05-12] MEDS: SENNA/DOCUSATE TABLET PO SCH (09:00)
[2018-05-12] MEDS: SODIUM CHLORIDE 0.9% 1,000 ML IV SCH (09:48)
[2018-05-12] MEDS: AMPICILLIN 500MG CAPSULE PO SCH (10:43)
== END 2018-05-12 11:05 | disposition home or self-care (01) | DRG 871 ==
LOC: ED 13:25 → 4NOR 17:15 → ED 18:10
PROVIDERS: ADMIT Internal Medicine; ATTEND Internal Medicine
PROC: 0T9B70Z Drainage of Bladder with Drainage Device, Via Natural or Artificial Opening (ICD-10-PCS; principal; 2018-05-08)
DX: A41.9 Sepsis, unspecified organism (principal); N17.0 Acute kidney failure with tubular necrosis; E43 Unspecified severe protein-calorie malnutrition; N39.0 Urinary tract infection, site not specified; I13.0 Hypertensive heart and chronic kidney disease with heart failure and stage 1 through stage 4 chronic kidney disease, or unspecified chronic kidney disease; N13.6 Pyonephrosis; R33.9 Retention of urine, unspecified; N28.1 Cyst of kidney, acquired; R31.9 Hematuria, unspecified; E03.9 Hypothyroidism, unspecified; J44.9 Chronic obstructive pulmonary disease, unspecified; N18.9 Chronic kidney disease, unspecified; E11.22 Type 2 diabetes mellitus with diabetic chronic kidney disease; B95.2 Enterococcus as the cause of diseases classified elsewhere; E78.5 Hyperlipidemia, unspecified; I50.9 Heart failure, unspecified; Z66 Do not resuscitate; K59.00 Constipation, unspecified; N32.89 Other specified disorders of bladder; Z85.46 Personal history of malignant neoplasm of prostate; Z85.828 Personal history of other malignant neoplasm of skin; Z87.891 Personal history of nicotine dependence; Z88.1 Allergy status to other antibiotic agents; Z90.79 Acquired absence of other genital organ(s); Z92.3 Personal history of irradiation; Z98.41 Cataract extraction status, right eye; Z98.42 Cataract extraction status, left eye; Z99.81 Dependence on supplemental oxygen; Z88.8 Allergy status to other drugs, medicaments and biological substances
CPT/HCPCS: 36415; 51702; 76770; 80048; 80069; 81001; 82040; 83605; 85025; 87040; 87077; 87086; 87186; 93005; 96374; 99285; G0378; J0696; J1956; J0290; J2270; J7030

== ENCOUNTER 2018-05-31 14:04 | Observation (INO) | payer MEDICARE ==
[~2018-05-31] VITALS: Ht 177.8 cm; Wt 104.2 kg
[~2018-05-31 14:04] MED LIST changes: +AMPI500C2 PO; +INDA1CAP2 INH; +NITR100C6 PO
[2018-05-31] MEDS ORDERED: LACTATED RINGERS 1,000 ML IV SCH (14:23)
[2018-05-31 14:49] VITALS: BP 110/63
[2018-05-31] MEDS ORDERED: MITOMYCIN 40 MG in STERILE WATER 20 ML INTVESIC ONE (16:15)
[2018-05-31] MEDS ORDERED: FENTANYL PF 250 MCG/5ML ONE (17:20)
[2018-05-31] MEDS ORDERED: LABETALOL 5MG/ML, 20ML IV PRN (18:30)
[2018-05-31] MEDS ORDERED: hydrALAzine 20 MG/ML, 1ML IV PRN (18:30)
[2018-05-31] MEDS ORDERED: ONDANSETRON ODT 8 MG PO PRN (18:30)
[2018-05-31] MEDS ORDERED: PROMETHAZINE 25 MG/ML, 1ML IM PRN ×2 (18:30)
[2018-05-31] MEDS ORDERED: PROMETHAZINE 12.5 MG SUPP PR PRN (18:30)
[2018-05-31] MEDS ORDERED: HYDROmorphone 2 MG/ML, 1ML IVPush PRN (18:30)
[2018-05-31] MEDS ORDERED: MEPERIDINE/PF 25MG/0.5ML IVPush PRN (18:30)
[2018-05-31] MEDS ORDERED: PROMETHAZINE 25 MG SUPP PR PRN (18:30)
[2018-05-31] MEDS ORDERED: PROMETHAZINE 25 MG/ML, 1ML IV PRN (18:30)
[2018-05-31] MEDS ORDERED: ACETAMINOPHEN 325 MG TABLET PO PRN (18:30)
[2018-05-31] MEDS ORDERED: ONDANSETRON 2MG/ML, 2ML IV PRN (18:30)
[2018-05-31] MEDS ORDERED: OXYcodone 5 MG/5 ML ORAL.SOL UDC PO PRN (18:30)
[2018-05-31] MEDS ORDERED: MORPHINE SULFATE 4 MG/ML, 1ML IVPush PRN (18:30)
[2018-05-31] MEDS ORDERED: CIPROFLOXACIN/PMX 400MG/200ML 200 ML ONE (18:58)
[2018-05-31] MEDS ORDERED: PROPOFOL 10 MG/ML, 20ML ONE (18:58)
[2018-05-31] MEDS ORDERED: HYDROmorphone 2 MG/ML, 1ML ONE (19:50)
[2018-05-31] MEDS ORDERED: FENTANYL PF 100 MCG/2ML ONE ×2 (19:50→19:58)
[2018-05-31] MEDS: FENTANYL PF 100 MCG/2ML IV PRN ×4 (19:52→20:24)
[2018-05-31] MEDS ORDERED: PROMETHAZINE 25 MG/ML, 1ML ONE (20:49)
[2018-05-31] MEDS: LACTATED RINGERS 1,000 ML IV SCH (22:30)
[2018-05-31] MEDS ORDERED: OPIUM/BELLADONNA SUPP.RECT 16.2-30 MG PR PRN (22:30)
[2018-05-31] MEDS ORDERED: HYDROcodone/APAP 5/325 TABLET PO PRN (22:30)
[2018-06-01 01:34] VITALS: BP 100/51
[2018-06-01 04:22] VITALS: BP 131/72
[2018-06-01] MEDS ORDERED: LEVOTHYROXINE 150 MCG TABLET PO SCH (06:00)
[2018-06-01 07:30] LABS: MEAN CORPUSCULAR HEMOGLOBIN 27.1 pg (27.5-34.5); MEAN CORPUSCULAR HGB CONC 31.6 g/dL (33.2-36.2); MEAN CORPUSCULAR VOLUME 85.9 fL (81-97); MEAN PLATELET VOLUME 8.5 fL (7.4-10.4); PLATELET COUNT 367 x10^3/uL (130-400); RED BLOOD COUNT 4.51 x10^6/uL (4.38-5.82); RED CELL DISTRIBUTION WIDTH 14.2 % (9.4-14.8)
[2018-06-01 07:40] LABS: ALANINE AMINOTRANSFERASE 24 U/L (12-78); ALBUMIN 2.1 g/dL (3.4-5.0); ANION GAP 5 mmol/L (5-15); CALCIUM 9.4 mg/dL (8.5-10.1); CHLORIDE 104 mmol/L (98-107)
[2018-06-01 07:45] LABS: ALKALINE PHOSPHATASE 67 U/L (45-117); BILIRUBIN,TOTAL 0.7 mg/dL (0.2-1.0); CREATININE 2.33 mg/dL (0.7-1.3); TOTAL PROTEIN 5.9 g/dL (6.4-8.2)
[2018-06-01 07:46] VITALS: BP 128/69
[2018-06-01 07:51] LABS: PSA SCREEN < 0.01 ng/mL (0.00-4.00)
[2018-06-01] MEDS: LACTATED RINGERS 1,000 ML IV SCH (07:57)
[2018-06-01 08:30] LABS: MD YES
[2018-06-01 08:32] LABS: BAND#(MANUAL) 1.67 x10^3/uL; BANDS%(MANUAL) 10 % (0-7); EOS#(MANUAL) 0.33 x10^3/uL (0.0-0.4); EOS% (MANUAL) 2 % (1-7); LYMPHS% (MANUAL) 3 % (22-44); MONOS#(MANUAL) 0.84 x10^3/uL (0.3-2.7); MONOS% (MANUAL) 5 % (2-9); SEG#(MANUAL) 13.36 x10^3/uL (1.8-6.8); SEGS% (MANUAL) 80 % (42-75)
[2018-06-01 08:33] LABS: <PLATELET ESTIMATE> ADEQUATE; <PLT MORPHOLOGY> NORMAL PLT MORPH; <RBC MORPHOLOGY> NORMAL
[2018-06-01 13:23] VITALS: BP 116/59
[2018-06-01 15:45] VITALS: BP 133/69
== END 2018-06-01 15:45 | disposition home or self-care (01) ==
LOC: OR 14:04 → 4NOR 21:54 → OR 23:43
PROVIDERS: ADMIT Urology; ATTEND Urology
DX: R31.0 Gross hematuria (principal); E03.9 Hypothyroidism, unspecified; J44.9 Chronic obstructive pulmonary disease, unspecified; N02.9 Recurrent and persistent hematuria with unspecified morphologic changes; N13.30 Unspecified hydronephrosis; N18.9 Chronic kidney disease, unspecified; Z85.46 Personal history of malignant neoplasm of prostate; Z87.440 Personal history of urinary (tract) infections; Z92.3 Personal history of irradiation; Z99.81 Dependence on supplemental oxygen
CPT/HCPCS: 36415; 52224; 72195; 80053; 84402; 84403; 85025; 88305; 88341; 88342; 93005; G0103; G0378; J0744; J1170; J2550; J2704; J3010; J7120; J9280

== ENCOUNTER 2018-06-03 07:54 | Inpatient (IN) | payer MEDICARE ==
[~2018-06-03] VITALS: Ht 177.8 cm; Wt 100.8 kg
[2018-06-03] MEDS ORDERED: SODIUM CHLORIDE FLUSH 10ML SYR IVF ONE (08:30)
[2018-06-03] MEDS ORDERED: SODIUM CHLORIDE 0.9% 1,000ML IVBOLUS ONE ×3 (08:30→12:00)
[2018-06-03 08:50] LABS: MEAN CORPUSCULAR HEMOGLOBIN 27.2 pg (27.5-34.5); MEAN CORPUSCULAR HGB CONC 31.8 g/dL (33.2-36.2); MEAN CORPUSCULAR VOLUME 85.4 fL (81-97); MEAN PLATELET VOLUME 8.4 fL (7.4-10.4); PLATELET COUNT 349 x10^3/uL (130-400); RED BLOOD COUNT 4.88 x10^6/uL (4.38-5.82); RED CELL DISTRIBUTION WIDTH 14.2 % (9.4-14.8)
[2018-06-03 08:58] LABS: ALANINE AMINOTRANSFERASE 27 U/L (12-78); ALBUMIN 2.1 g/dL (3.4-5.0); ANION GAP 7 mmol/L (5-15); CHLORIDE 102 mmol/L (98-107); CREATININE 2.88 mg/dL (0.7-1.3)
[2018-06-03] MEDS ORDERED: VANCOMYCIN 2,000 MG in SODIUM CHLORIDE 0.9% 500 ML IV ONE (09:00)
[2018-06-03] MEDS ORDERED: VANCOMYCIN PER PHARMACY MC ONE (09:00)
[2018-06-03] MEDS ORDERED: PIPERACILLIN/TAZO/PMX 4.5GM 100 ML IVPB ONE (09:00)
[2018-06-03 09:02] LABS: ALKALINE PHOSPHATASE 84 U/L (45-117); BILIRUBIN,TOTAL 0.5 mg/dL (0.2-1.0); TOTAL PROTEIN 6.3 g/dL (6.4-8.2); TROPONIN I < 0.015 ng/mL (0.000-0.045)
[2018-06-03 09:17] LABS: MD YES
[2018-06-03 09:19] LABS: BAND#(MANUAL) 2.29 x10^3/uL; BANDS%(MANUAL) 12 % (0-7); BASOS#(MANUAL) 0.19 x10^3/uL (0-0.1); BASOS% (MANUAL) 1 % (0-1); EOS#(MANUAL) 0.76 x10^3/uL (0.0-0.4); EOS% (MANUAL) 4 % (1-7); LYMPH#(MANUAL) 0.19 x10^3/uL (1-3.4); LYMPHS% (MANUAL) 1 % (22-44); MONOS#(MANUAL) 0.76 x10^3/uL (0.3-2.7); MONOS% (MANUAL) 4 % (2-9); SEGS% (MANUAL) 78 % (42-75)
[2018-06-03 09:20] LABS: <PLATELET ESTIMATE> ADEQUATE; <PLT MORPHOLOGY> NORMAL PLT MORPH; <RBC MORPHOLOGY> NORMAL
[2018-06-03] MEDS ORDERED: ACETAMINOPHEN 650 MG SUPP PR PRN (09:30)
[2018-06-03] MEDS ORDERED: ACETAMINOPHEN 650 MG SUPP ONE (09:39)
[2018-06-03 09:47] LABS: MICROSCOPIC INDICATED
[2018-06-03 09:49] LABS: CULTURE INDICATED? YES
--- NOTE | 2018-06-03 10:09 | NUR ---
DEENA PAVON NOTE: COMFORT MEASURES TAKEN
--- NOTE | 2018-06-03 12:07 | NUR ---
TASK RN: PT MEDICATED PER EMAR. PT FEVER TRENDING DOWN.
--- NOTE | 2018-06-03 12:14 | NUR ---
PT REPORT TO [facility] [phone]
[2018-06-03 12:45] VITALS: BP 104/65
[2018-06-03] MEDS ORDERED: D5%-0.45% NACL 1,000 ML IV ONE (13:09)
[2018-06-03] MEDS ORDERED: SODIUM CHLORIDE FLUSH 10ML SYR IVF PRN (13:30)
[2018-06-03] MEDS ORDERED: LIDOCAINE 1%, 20ML ONE (13:40)
[2018-06-03] MEDS ORDERED: FLUMAZENIL 0.1 MG/1 ML, 5ML ONE (13:59)
[2018-06-03] MEDS ORDERED: MIDAZOLAM 1 MG/ML, 5ML ONE (13:59)
[2018-06-03] MEDS ORDERED: FENTANYL PF 100 MCG/2ML ONE (13:59)
[2018-06-03] MEDS ORDERED: NALOXONE 1 MG/ML, 2ML ONE (13:59)
[2018-06-03 14:00] VITALS: BP 104/65
[2018-06-03] MEDS ORDERED: VISIPAQUE 270 MG/ML, 50ML BOTTLE ONE (14:00)
[2018-06-03] MEDS ORDERED: ZOSYN PER PHARMACY MC PRN (17:00)
[2018-06-03] MEDS ORDERED: VANCOMYCIN PER PHARMACY MC PRN (17:00)
[2018-06-03] MEDS ORDERED: BISACODYL 10 MG SUPP PR PRN (17:00)
[2018-06-03] MEDS ORDERED: PHARMACOKINETIC CONSULTATION MC ONE (17:30)
[2018-06-03] MEDS ORDERED: ALBUTEROL SULFATE 2.5 MG/3 ML NPPB PRN (18:00)
[2018-06-03] MEDS: D5%-0.45% NACL 1,000 ML IV SCH (18:12)
[2018-06-03 19:30] VITALS: BP 105/66
[2018-06-03] MEDS: PIPERACILLIN/TAZO/PMX 2.25GM 50 ML IVPB SCH (20:21)
[2018-06-04 00:12] VITALS: BP 129/70
[2018-06-04] MEDS: D5%-0.45% NACL 1,000 ML IV SCH ×2 (02:25→14:49)
[2018-06-04] MEDS: PIPERACILLIN/TAZO/PMX 2.25GM 50 ML IVPB SCH ×5 (02:26→23:20)
[2018-06-04] MEDS: ACETAMINOPHEN 325 MG TABLET PO PRN ×3 (04:49→23:20)
[2018-06-04 05:43] LABS: MEAN CORPUSCULAR HGB CONC 32.7 g/dL (33.2-36.2); MEAN CORPUSCULAR VOLUME 85.5 fL (81-97); MEAN PLATELET VOLUME 8.5 fL (7.4-10.4); PLATELET COUNT 335 x10^3/uL (130-400); RED BLOOD COUNT 4.18 x10^6/uL (4.38-5.82); RED CELL DISTRIBUTION WIDTH 14.6 % (9.4-14.8)
[2018-06-04 05:53] LABS: CHLORIDE 106 mmol/L (98-107)
[2018-06-04 06:01] LABS: ANION GAP 4 mmol/L (5-15); CALCIUM 8.1 mg/dL (8.5-10.1); CREATININE 2.82 mg/dL (0.7-1.3)
[2018-06-04] MEDS: LEVOTHYROXINE 150 MCG TABLET PO SCH (06:11)
[2018-06-04 06:26] LABS: MD YES
[2018-06-04 06:28] LABS: BAND#(MANUAL) 2.21 x10^3/uL; BANDS%(MANUAL) 14 % (0-7); EOS#(MANUAL) 0.95 x10^3/uL (0.0-0.4); EOS% (MANUAL) 6 % (1-7); LYMPH#(MANUAL) 0.63 x10^3/uL (1-3.4); LYMPHS% (MANUAL) 4 % (22-44); MONOS#(MANUAL) 1.11 x10^3/uL (0.3-2.7); MONOS% (MANUAL) 7 % (2-9); SEGS% (MANUAL) 69 % (42-75)
[2018-06-04 06:30] LABS: <PLATELET ESTIMATE> ADEQUATE; <PLT MORPHOLOGY> NORMAL PLT MORPH; <RBC MORPHOLOGY> NORMAL
[2018-06-04 07:29] VITALS: BP 104/63
[2018-06-04] MEDS: SENNA/DOCUSATE TABLET PO SCH (08:16)
[2018-06-04 12:30] VITALS: BP 130/80
[2018-06-04 19:14] VITALS: BP 147/76
[2018-06-05 00:38] VITALS: BP 129/74
[2018-06-05] MEDS: D5%-0.45% NACL 1,000 ML IV SCH ×2 (02:54→12:50)
[2018-06-05] MEDS: LEVOTHYROXINE 150 MCG TABLET PO SCH (06:00)
[2018-06-05] MEDS: PIPERACILLIN/TAZO/PMX 2.25GM 50 ML IVPB SCH ×2 (06:00→12:48)
[2018-06-05 06:35] LABS: BASOPHILS # (AUTO) 0.04 x10^3/uL (0-0.1); BASOPHILS % (AUTO) 0 % (0-1); EOSINOPHILS # (AUTO) 0.92 x10^3/uL (0-0.4); EOSINOPHILS % (AUTO) 6 % (1-7); LYMPHOCYTES # (AUTO) 0.76 x10^3/uL (1-3.4); LYMPHOCYTES % (AUTO) 5 % (22-44); MD NO; MEAN CORPUSCULAR HEMOGLOBIN 27.5 pg (27.5-34.5); MEAN CORPUSCULAR HGB CONC 32.3 g/dL (33.2-36.2); MEAN CORPUSCULAR VOLUME 85.2 fL (81-97); MEAN PLATELET VOLUME 8.3 fL (7.4-10.4); MONOCYTES # (AUTO) 0.97 x10^3/uL (0.2-0.8); MONOCYTES % (AUTO) 6 % (2-9); NEUTROPHILS # (AUTO) 13.23 x10^3/uL (1.8-6.8); NEUTROPHILS % (AUTO) 83 % (42-75); PLATELET COUNT 371 x10^3/uL (130-400); RED CELL DISTRIBUTION WIDTH 14.3 % (9.4-14.8)
[2018-06-05 06:40] LABS: ANION GAP 6 mmol/L (5-15); CALCIUM 8.5 mg/dL (8.5-10.1); CHLORIDE 106 mmol/L (98-107); CREATININE 2.34 mg/dL (0.7-1.3)
[2018-06-05 06:42] LABS: VANCOMYCIN,RANDOM 8.1 mcg/mL
[2018-06-05 06:54] VITALS: BP 132/69
[2018-06-05] MEDS ORDERED: VANCOMYCIN 2,000 MG in SODIUM CHLORIDE 0.9% 500 ML IV ONE (08:00)
[2018-06-05] MEDS: SENNA/DOCUSATE TABLET PO SCH (08:20)
[2018-06-05 12:43] VITALS: BP 136/72
[2018-06-05] MEDS: ACETAMINOPHEN 325 MG TABLET PO PRN (17:34)
[2018-06-05 19:57] VITALS: BP 154/73
[2018-06-05] MEDS: PIPERACILLIN/TAZO/PMX 3.375GM 50 ML IV SCH (20:06)
[2018-06-06] MEDS: PIPERACILLIN/TAZO/PMX 3.375GM 50 ML IV SCH ×4 (01:54→21:35)
[2018-06-06] MEDS: ACETAMINOPHEN 325 MG TABLET PO PRN ×3 (01:55→19:49)
[2018-06-06 02:00] VITALS: BP 144/80
[2018-06-06] MEDS: LEVOTHYROXINE 150 MCG TABLET PO SCH (04:42)
[2018-06-06 06:44] VITALS: BP 138/78
[2018-06-06] MEDS: SENNA/DOCUSATE TABLET PO SCH (08:52)
[2018-06-06] MEDS: D5%-0.45% NACL 1,000 ML IV SCH ×2 (08:53→21:36)
[2018-06-06 13:58] VITALS: BP 145/73
[2018-06-06 19:10] VITALS: BP 134/70
[2018-06-07 00:08] VITALS: BP 154/81
[2018-06-07] MEDS: PIPERACILLIN/TAZO/PMX 3.375GM 50 ML IV SCH ×2 (03:21→09:06)
[2018-06-07] MEDS: ACETAMINOPHEN 325 MG TABLET PO PRN ×3 (03:37→16:30)
[2018-06-07] MEDS: LEVOTHYROXINE 150 MCG TABLET PO SCH (06:12)
[2018-06-07 06:16] LABS: BASOPHILS # (AUTO) 0.08 x10^3/uL (0-0.1); BASOPHILS % (AUTO) 1 % (0-1); EOSINOPHILS # (AUTO) 0.68 x10^3/uL (0-0.4); EOSINOPHILS % (AUTO) 5 % (1-7); LYMPHOCYTES # (AUTO) 0.82 x10^3/uL (1-3.4); LYMPHOCYTES % (AUTO) 6 % (22-44); MD NO; MEAN CORPUSCULAR HEMOGLOBIN 27.8 pg (27.5-34.5); MEAN CORPUSCULAR HGB CONC 32.7 g/dL (33.2-36.2); MEAN CORPUSCULAR VOLUME 85.2 fL (81-97); MONOCYTES # (AUTO) 1.09 x10^3/uL (0.2-0.8); MONOCYTES % (AUTO) 7 % (2-9); NEUTROPHILS # (AUTO) 12.09 x10^3/uL (1.8-6.8); NEUTROPHILS % (AUTO) 82 % (42-75); PLATELET COUNT 387 x10^3/uL (130-400); RED BLOOD COUNT 4.19 x10^6/uL (4.38-5.82); RED CELL DISTRIBUTION WIDTH 14.2 % (9.4-14.8)
[2018-06-07 06:23] LABS: CHLORIDE 108 mmol/L (98-107)
[2018-06-07 06:35] LABS: ANION GAP 5 mmol/L (5-15); CALCIUM 8.3 mg/dL (8.5-10.1); CREATININE 1.88 mg/dL (0.7-1.3); VANCOMYCIN,RANDOM 11.6 mcg/mL
[2018-06-07 07:01] VITALS: BP 150/79
[2018-06-07] MEDS: SENNA/DOCUSATE TABLET PO SCH (09:07)
[2018-06-07] MEDS ORDERED: VANCOMYCIN 2,000 MG in SODIUM CHLORIDE 0.9% 500 ML IV ONE (12:00)
[2018-06-07] MEDS ORDERED: VANCOMYCIN 2,000 MG in SODIUM CHLORIDE 0.9% 500 ML IV SCH (12:00)
[2018-06-07 14:16] VITALS: BP 156/75
[2018-06-07 20:46] VITALS: BP 149/82
[2018-06-07] MEDS: TEMAZEPAM 15 MG CAPSULE PO PRN (21:10)
[2018-06-07] MEDS: D5%-0.45% NACL 1,000 ML IV SCH (21:10)
[2018-06-07] MEDS: LINEZOLID 600 MG TABLET PO SCH (21:10)
[2018-06-08 00:17] VITALS: BP 148/72
[2018-06-08] MEDS: ACETAMINOPHEN 325 MG TABLET PO PRN ×4 (00:17→23:52)
[2018-06-08] MEDS: LEVOTHYROXINE 150 MCG TABLET PO SCH (06:34)
[2018-06-08] MEDS: LINEZOLID 600 MG TABLET PO SCH ×2 (08:25→21:05)
[2018-06-08 08:26] VITALS: BP 142/69
[2018-06-08] MEDS: D5%-0.45% NACL 1,000 ML IV SCH ×2 (08:26→20:56)
[2018-06-08] MEDS: SENNA/DOCUSATE TABLET PO SCH (08:26)
[2018-06-08 14:06] VITALS: BP 139/71
[2018-06-08 20:40] VITALS: BP 159/83
[2018-06-08] MEDS: TEMAZEPAM 15 MG CAPSULE PO PRN (21:05)
[2018-06-09 00:01] VITALS: BP 101/66
[2018-06-09] MEDS: TEMAZEPAM 15 MG CAPSULE PO PRN ×2 (00:16→21:24)
[2018-06-09 05:36] LABS: BASOPHILS # (AUTO) 0.09 x10^3/uL (0-0.1); BASOPHILS % (AUTO) 1 % (0-1); EOSINOPHILS # (AUTO) 0.74 x10^3/uL (0-0.4); EOSINOPHILS % (AUTO) 5 % (1-7); LYMPHOCYTES # (AUTO) 1.04 x10^3/uL (1-3.4); LYMPHOCYTES % (AUTO) 6 % (22-44); MD NO; MEAN CORPUSCULAR HEMOGLOBIN 27.5 pg (27.5-34.5); MEAN CORPUSCULAR HGB CONC 32.6 g/dL (33.2-36.2); MEAN CORPUSCULAR VOLUME 84.5 fL (81-97); MONOCYTES # (AUTO) 1.22 x10^3/uL (0.2-0.8); MONOCYTES % (AUTO) 7 % (2-9); NEUTROPHILS # (AUTO) 13.53 x10^3/uL (1.8-6.8); NEUTROPHILS % (AUTO) 81 % (42-75); PLATELET COUNT 442 x10^3/uL (130-400); RED CELL DISTRIBUTION WIDTH 14.6 % (9.4-14.8)
[2018-06-09 05:46] LABS: INTERNATIONAL NORMALIZED RATIO 1.09 (0.93-1.1); PROTHROMBIN TIME 11.4 Seconds (9.6-11.5)
[2018-06-09 05:47] LABS: ALBUMIN 1.7 g/dL (3.4-5.0); ANION GAP 4 mmol/L (5-15); CALCIUM 7.4 mg/dL (8.5-10.1); CHLORIDE 106 mmol/L (98-107)
[2018-06-09 05:53] LABS: ALANINE AMINOTRANSFERASE 29 U/L (12-78); ALKALINE PHOSPHATASE 71 U/L (45-117); BILIRUBIN,TOTAL 0.3 mg/dL (0.2-1.0); CREATINE KINASE, TOTAL 19 U/L (39-308); CREATININE 1.55 mg/dL (0.7-1.3); TOTAL PROTEIN 5.5 g/dL (6.4-8.2)
[2018-06-09] MEDS: LEVOTHYROXINE 150 MCG TABLET PO SCH (06:16)
[2018-06-09 08:00] VITALS: BP 134/72
[2018-06-09] MEDS: SENNA/DOCUSATE TABLET PO SCH (08:30)
[2018-06-09] MEDS: LINEZOLID 600 MG TABLET PO SCH (08:30)
[2018-06-09] MEDS: D5%-0.45% NACL 1,000 ML IV SCH ×2 (09:47→21:24)
[2018-06-09 13:58] VITALS: BP 151/74
[2018-06-09] MEDS: DAPTOMYCIN 600 MG in SODIUM CHLORIDE 0.9% 100 ML IV SCH (15:30)
[2018-06-09 20:32] VITALS: BP 141/73
[2018-06-09] MEDS: ACETAMINOPHEN 325 MG TABLET PO PRN (21:24)
[2018-06-10 00:21] VITALS: BP 120/66
[2018-06-10 05:03] LABS: BASOPHILS # (AUTO) 0.12 x10^3/uL (0-0.1); BASOPHILS % (AUTO) 1 % (0-1); EOSINOPHILS # (AUTO) 0.73 x10^3/uL (0-0.4); EOSINOPHILS % (AUTO) 4 % (1-7); LYMPHOCYTES # (AUTO) 1.36 x10^3/uL (1-3.4); LYMPHOCYTES % (AUTO) 8 % (22-44); MD NO; MEAN CORPUSCULAR HEMOGLOBIN 27.6 pg (27.5-34.5); MEAN CORPUSCULAR HGB CONC 32.2 g/dL (33.2-36.2); MEAN CORPUSCULAR VOLUME 85.8 fL (81-97); MEAN PLATELET VOLUME 7.8 fL (7.4-10.4); MONOCYTES # (AUTO) 1.35 x10^3/uL (0.2-0.8); MONOCYTES % (AUTO) 8 % (2-9); NEUTROPHILS # (AUTO) 13.24 x10^3/uL (1.8-6.8); NEUTROPHILS % (AUTO) 79 % (42-75); PLATELET COUNT 487 x10^3/uL (130-400); RED BLOOD COUNT 4.29 x10^6/uL (4.38-5.82); RED CELL DISTRIBUTION WIDTH 14.6 % (9.4-14.8)
[2018-06-10 05:15] LABS: ALBUMIN 1.6 g/dL (3.4-5.0); ANION GAP 6 mmol/L (5-15); CALCIUM 7.9 mg/dL (8.5-10.1); CHLORIDE 109 mmol/L (98-107)
[2018-06-10 05:18] LABS: ALANINE AMINOTRANSFERASE 29 U/L (12-78); ALKALINE PHOSPHATASE 74 U/L (45-117); BILIRUBIN,TOTAL 0.6 mg/dL (0.2-1.0); CREATININE 1.58 mg/dL (0.7-1.3); TOTAL PROTEIN 5.5 g/dL (6.4-8.2)
[2018-06-10 06:53] VITALS: BP 166/86
[2018-06-10] MEDS: LEVOTHYROXINE 150 MCG TABLET PO SCH (09:00)
[2018-06-10] MEDS: SENNA/DOCUSATE TABLET PO SCH (09:00)
[2018-06-10] MEDS: D5%-0.45% NACL 1,000 ML IV SCH ×2 (13:50→21:17)
[2018-06-10] MEDS: ACETAMINOPHEN 325 MG TABLET PO PRN ×2 (14:24→22:54)
[2018-06-10 15:38] VITALS: BP 135/78
[2018-06-10 19:31] VITALS: BP 121/64
[2018-06-10] MEDS: DAPTOMYCIN 600 MG in SODIUM CHLORIDE 0.9% 100 ML IV SCH (21:17)
[2018-06-10] MEDS: TEMAZEPAM 15 MG CAPSULE PO PRN (22:54)
[2018-06-11 01:56] VITALS: BP 139/79
[2018-06-11] MEDS: LEVOTHYROXINE 150 MCG TABLET PO SCH (06:26)
[2018-06-11] MEDS: ACETAMINOPHEN 325 MG TABLET PO PRN ×3 (08:22→21:43)
[2018-06-11] MEDS: SENNA/DOCUSATE TABLET PO SCH (08:22)
[2018-06-11 08:45] VITALS: BP 124/75
[2018-06-11 14:30] VITALS: BP 145/77
[2018-06-11] MEDS: D5%-0.45% NACL 1,000 ML IV SCH (17:02)
[2018-06-11 19:28] VITALS: BP 141/75
[2018-06-11] MEDS: TEMAZEPAM 15 MG CAPSULE PO PRN (21:43)
[2018-06-11] MEDS: DAPTOMYCIN 600 MG in SODIUM CHLORIDE 0.9% 100 ML IV SCH (21:47)
[2018-06-12 02:02] VITALS: BP 149/73
[2018-06-12] MEDS: D5%-0.45% NACL 1,000 ML IV SCH ×2 (04:26→23:53)
[2018-06-12 04:50] LABS: MEAN CORPUSCULAR HEMOGLOBIN 27.4 pg (27.5-34.5); MEAN CORPUSCULAR HGB CONC 31.7 g/dL (33.2-36.2); MEAN CORPUSCULAR VOLUME 86.3 fL (81-97); MEAN PLATELET VOLUME 7.6 fL (7.4-10.4); PLATELET COUNT 516 x10^3/uL (130-400); RED BLOOD COUNT 4.13 x10^6/uL (4.38-5.82)
[2018-06-12 05:28] LABS: BASOPHILS # (AUTO) 0.06 x10^3/uL (0-0.1); BASOPHILS % (AUTO) 0 % (0-1); EOSINOPHILS # (AUTO) 0.72 x10^3/uL (0-0.4); EOSINOPHILS % (AUTO) 4 % (1-7); LYMPHOCYTES # (AUTO) 1.04 x10^3/uL (1-3.4); LYMPHOCYTES % (AUTO) 5 % (22-44); MD SCAN; MONOCYTES % (AUTO) 7 % (2-9); NEUTROPHILS # (AUTO) 16.48 x10^3/uL (1.8-6.8); NEUTROPHILS % (AUTO) 84 % (42-75)
[2018-06-12] MEDS: LEVOTHYROXINE 150 MCG TABLET PO SCH (06:30)
[2018-06-12 07:53] VITALS: BP 149/77
[2018-06-12] MEDS: SENNA/DOCUSATE TABLET PO SCH (09:52)
[2018-06-12 14:10] VITALS: BP 145/73
[2018-06-12 18:39] VITALS: BP 139/89
[2018-06-12] MEDS: DAPTOMYCIN 600 MG in SODIUM CHLORIDE 0.9% 100 ML IV SCH (22:00)
[2018-06-12] MEDS: ACETAMINOPHEN 325 MG TABLET PO PRN (22:00)
[2018-06-12] MEDS: TEMAZEPAM 15 MG CAPSULE PO PRN (23:49)
[2018-06-13 02:28] VITALS: BP 145/77
[2018-06-13] MEDS: LEVOTHYROXINE 150 MCG TABLET PO SCH (06:00)
[2018-06-13 07:11] VITALS: BP 152/83
[2018-06-13] MEDS: ACETAMINOPHEN 325 MG TABLET PO PRN ×2 (09:00→20:28)
[2018-06-13] MEDS: SENNA/DOCUSATE TABLET PO SCH (09:00)
[2018-06-13] MEDS: D5%-0.45% NACL 1,000 ML IV SCH (12:10)
[2018-06-13 13:32] VITALS: BP 139/80
[2018-06-13] MEDS ORDERED: MORPHINE SULFATE 4 MG/ML, 1ML ONE (17:27)
[2018-06-13] MEDS ORDERED: morphine SULFATE 10 MG/ML, 1ML IVPush PRN (17:30)
[2018-06-13 19:39] VITALS: BP 151/72
[2018-06-13] MEDS: TEMAZEPAM 15 MG CAPSULE PO PRN (20:27)
[2018-06-13] MEDS: DAPTOMYCIN 600 MG in SODIUM CHLORIDE 0.9% 100 ML IV SCH (22:50)
[2018-06-14 01:35] VITALS: BP 125/71
[2018-06-14] MEDS: LEVOTHYROXINE 150 MCG TABLET PO SCH (05:20)
[2018-06-14] MEDS: SENNA/DOCUSATE TABLET PO SCH (08:54)
[2018-06-14 09:41] VITALS: BP 135/71
[2018-06-14 13:33] VITALS: BP 147/68
[2018-06-14 13:40] LABS: MEAN CORPUSCULAR HEMOGLOBIN 27.8 pg (27.5-34.5); MEAN CORPUSCULAR HGB CONC 32.3 g/dL (33.2-36.2); MEAN CORPUSCULAR VOLUME 86.1 fL (81-97); MEAN PLATELET VOLUME 7.7 fL (7.4-10.4); PLATELET COUNT 485 x10^3/uL (130-400)
[2018-06-14 14:01] LABS: BASOPHILS # (AUTO) 0.01 x10^3/uL (0-0.1); BASOPHILS % (AUTO) 0 % (0-1); EOSINOPHILS % (AUTO) 2 % (1-7); LYMPHOCYTES # (AUTO) 1.43 x10^3/uL (1-3.4); LYMPHOCYTES % (AUTO) 6 % (22-44); MD SCAN; MONOCYTES # (AUTO) 1.67 x10^3/uL (0.2-0.8); MONOCYTES % (AUTO) 7 % (2-9); NEUTROPHILS # (AUTO) 19.03 x10^3/uL (1.8-6.8); NEUTROPHILS % (AUTO) 84 % (42-75)
[2018-06-14 19:25] VITALS: BP 134/79
[2018-06-14] MEDS: DAPTOMYCIN 600 MG in SODIUM CHLORIDE 0.9% 100 ML IV SCH (22:02)
[2018-06-15 03:37] VITALS: BP 130/73
[2018-06-15 04:40] LABS: MEAN CORPUSCULAR HEMOGLOBIN 27.8 pg (27.5-34.5); MEAN CORPUSCULAR HGB CONC 32.4 g/dL (33.2-36.2); MEAN CORPUSCULAR VOLUME 85.8 fL (81-97); MEAN PLATELET VOLUME 8.1 fL (7.4-10.4); PLATELET COUNT 443 x10^3/uL (130-400); RED CELL DISTRIBUTION WIDTH 14.8 % (9.4-14.8)
[2018-06-15 04:41] LABS: CHLORIDE 104 mmol/L (98-107)
[2018-06-15 04:53] LABS: ALANINE AMINOTRANSFERASE 22 U/L (12-78); ALBUMIN 1.7 g/dL (3.4-5.0); ALKALINE PHOSPHATASE 94 U/L (45-117); ANION GAP 3 mmol/L (5-15); BILIRUBIN,TOTAL 0.7 mg/dL (0.2-1.0); CALCIUM 8.2 mg/dL (8.5-10.1); CREATININE 1.34 mg/dL (0.7-1.3); TOTAL PROTEIN 5.7 g/dL (6.4-8.2)
[2018-06-15 05:20] LABS: BASOPHILS # (AUTO) 0.19 x10^3/uL (0-0.1); BASOPHILS % (AUTO) 1 % (0-1); EOSINOPHILS # (AUTO) 0.59 x10^3/uL (0-0.4); EOSINOPHILS % (AUTO) 3 % (1-7); LYMPHOCYTES # (AUTO) 1.13 x10^3/uL (1-3.4); LYMPHOCYTES % (AUTO) 5 % (22-44); MD SCAN; MONOCYTES # (AUTO) 1.43 x10^3/uL (0.2-0.8); MONOCYTES % (AUTO) 7 % (2-9); NEUTROPHILS # (AUTO) 17.72 x10^3/uL (1.8-6.8); NEUTROPHILS % (AUTO) 84 % (42-75)
[2018-06-15] MEDS: LEVOTHYROXINE 150 MCG TABLET PO SCH (05:49)
[2018-06-15 08:33] VITALS: BP 124/81
[2018-06-15] MEDS: SENNA/DOCUSATE TABLET PO SCH (08:33)
[2018-06-15 14:00] VITALS: BP 157/80
[2018-06-15] MEDS: ACETAMINOPHEN 325 MG TABLET PO PRN (18:48)
[2018-06-15 19:56] VITALS: BP 153/82
[2018-06-15] MEDS: DAPTOMYCIN 600 MG in SODIUM CHLORIDE 0.9% 100 ML IV SCH (21:56)
[2018-06-16 00:48] VITALS: BP 149/87
[2018-06-16] MEDS: LEVOTHYROXINE 150 MCG TABLET PO SCH (04:57)
[2018-06-16 05:34] LABS: MEAN CORPUSCULAR HEMOGLOBIN 27.2 pg (27.5-34.5); MEAN CORPUSCULAR HGB CONC 31.9 g/dL (33.2-36.2); MEAN CORPUSCULAR VOLUME 85.4 fL (81-97); MEAN PLATELET VOLUME 7.9 fL (7.4-10.4); PLATELET COUNT 466 x10^3/uL (130-400); RED BLOOD COUNT 3.97 x10^6/uL (4.38-5.82); RED CELL DISTRIBUTION WIDTH 14.9 % (9.4-14.8)
[2018-06-16 05:48] LABS: CHLORIDE 102 mmol/L (98-107)
[2018-06-16 05:58] LABS: ANION GAP 5 mmol/L (5-15); CALCIUM 8.7 mg/dL (8.5-10.1); CREATININE 1.41 mg/dL (0.7-1.3)
[2018-06-16 06:15] LABS: BASOPHILS # (AUTO) 0.23 x10^3/uL (0-0.1); BASOPHILS % (AUTO) 1 % (0-1); EOSINOPHILS # (AUTO) 0.58 x10^3/uL (0-0.4); EOSINOPHILS % (AUTO) 3 % (1-7); LYMPHOCYTES # (AUTO) 1.24 x10^3/uL (1-3.4); LYMPHOCYTES % (AUTO) 6 % (22-44); MD SCAN; MONOCYTES # (AUTO) 1.25 x10^3/uL (0.2-0.8); MONOCYTES % (AUTO) 6 % (2-9); NEUTROPHILS # (AUTO) 16.69 x10^3/uL (1.8-6.8); NEUTROPHILS % (AUTO) 84 % (42-75)
[2018-06-16 08:00] VITALS: BP 161/76
[2018-06-16] MEDS: SENNA/DOCUSATE TABLET PO SCH (09:00)
[2018-06-16] MEDS: ACETAMINOPHEN 325 MG TABLET PO PRN (13:28)
[2018-06-16 13:57] VITALS: BP 130/74
[2018-06-16 19:18] VITALS: BP 150/65
[2018-06-16] MEDS: DAPTOMYCIN 600 MG in SODIUM CHLORIDE 0.9% 100 ML IV SCH (21:14)
[2018-06-17 02:15] VITALS: BP 132/67
[2018-06-17] MEDS: LEVOTHYROXINE 150 MCG TABLET PO SCH (05:50)
[2018-06-17 07:58] VITALS: BP 150/74
[2018-06-17] MEDS: SENNA/DOCUSATE TABLET PO SCH (09:00)
[2018-06-17 14:34] VITALS: BP 136/71
[2018-06-17] MEDS: OXYBUTYNIN CHLORIDE 5 MG TABLET PO SCH ×2 (17:13→20:59)
[2018-06-17] MEDS: ACETAMINOPHEN 325 MG TABLET PO PRN (17:14)
[2018-06-17 20:15] VITALS: BP 138/72
[2018-06-17] MEDS: TEMAZEPAM 15 MG CAPSULE PO PRN (20:59)
[2018-06-17] MEDS: DAPTOMYCIN 600 MG in SODIUM CHLORIDE 0.9% 100 ML IV SCH (23:40)
[2018-06-18 01:14] VITALS: BP 125/70
[2018-06-18] MEDS: ACETAMINOPHEN 325 MG TABLET PO PRN ×3 (04:40→17:38)
[2018-06-18] MEDS: LEVOTHYROXINE 150 MCG TABLET PO SCH (06:04)
[2018-06-18] MEDS: SENNA/DOCUSATE TABLET PO SCH (09:00)
[2018-06-18] MEDS: OXYBUTYNIN CHLORIDE 5 MG TABLET PO SCH ×3 (09:18→22:07)
[2018-06-18 11:50] VITALS: BP 133/71
[2018-06-18 16:10] VITALS: BP 132/75
[2018-06-18 20:03] VITALS: BP 129/76
[2018-06-18] MEDS: TEMAZEPAM 15 MG CAPSULE PO PRN (22:07)
[2018-06-18] MEDS: DAPTOMYCIN 600 MG in SODIUM CHLORIDE 0.9% 100 ML IV SCH (22:07)
[2018-06-19 01:43] VITALS: BP 132/68
[2018-06-19 04:36] LABS: MEAN CORPUSCULAR HEMOGLOBIN 27.4 pg (27.5-34.5); MEAN CORPUSCULAR HGB CONC 32.2 g/dL (33.2-36.2); MEAN CORPUSCULAR VOLUME 85.1 fL (81-97); MEAN PLATELET VOLUME 7.8 fL (7.4-10.4); PLATELET COUNT 367 x10^3/uL (130-400); RED BLOOD COUNT 3.91 x10^6/uL (4.38-5.82); RED CELL DISTRIBUTION WIDTH 15.2 % (9.4-14.8)
[2018-06-19 04:43] LABS: ANION GAP 3 mmol/L (5-15); CALCIUM 8.6 mg/dL (8.5-10.1); CHLORIDE 100 mmol/L (98-107); CREATININE 1.47 mg/dL (0.7-1.3)
[2018-06-19 05:05] LABS: BASOPHILS # (AUTO) 0.29 x10^3/uL (0-0.1); BASOPHILS % (AUTO) 2 % (0-1); EOSINOPHILS % (AUTO) 4 % (1-7); LYMPHOCYTES # (AUTO) 1.12 x10^3/uL (1-3.4); LYMPHOCYTES % (AUTO) 6 % (22-44); MONOCYTES # (AUTO) 0.89 x10^3/uL (0.2-0.8); MONOCYTES % (AUTO) 5 % (2-9); NEUTROPHILS % (AUTO) 83 % (42-75)
[2018-06-19 05:09] LABS: MD SCAN
[2018-06-19] MEDS: LEVOTHYROXINE 150 MCG TABLET PO SCH (06:06)
[2018-06-19 06:44] VITALS: BP 136/71
[2018-06-19] MEDS: OXYBUTYNIN CHLORIDE 5 MG TABLET PO SCH (10:02)
[2018-06-19] MEDS: ACETAMINOPHEN 325 MG TABLET PO PRN (10:02)
[2018-06-19] MEDS: SENNA/DOCUSATE TABLET PO SCH (10:03)
[2018-06-19] MEDS ORDERED: ACET325T14 PO (11:37)
[2018-06-19] MEDS ORDERED: TRAM50TA2 PO (11:37)
[2018-06-19] MEDS ORDERED: OXYB5TAB7 PO (11:37)
[2018-06-19] MEDS ORDERED: DAPTOMYCIN 600 MG in SODIUM CHLORIDE 0.9% 100 ML IV SCH (13:00)
[2018-06-19 13:42] VITALS: BP 111/69
[2018-06-19] MEDS ORDERED: OXYBUTYNIN CHLORIDE 5 MG TABLET PO SCH (21:00)
== END 2018-06-19 18:27 | disposition home health service (06) | DRG 871 ==
LOC: ED 09:07 → EDIP 11:36 → 4EST 12:36 → 3NW 06-08 14:00
PROVIDERS: ADMIT Internal Medicine; ATTEND Internal Medicine
PROC: 0T9330Z Drainage of Right Kidney Pelvis with Drainage Device, Percutaneous Approach (ICD-10-PCS; principal; 2018-06-03)
PROC: 0T9430Z Drainage of Left Kidney Pelvis with Drainage Device, Percutaneous Approach (ICD-10-PCS; 2018-06-03)
PROC: BT111ZZ Fluoroscopy of Right Kidney using Low Osmolar Contrast (ICD-10-PCS; 2018-06-10)
PROC: B5181ZA Fluoroscopy of Superior Vena Cava using Low Osmolar Contrast, Guidance (ICD-10-PCS; 2018-06-14)
PROC: B548ZZA Ultrasonography of Superior Vena Cava, Guidance (ICD-10-PCS; 2018-06-14)
PROC: 02HV33Z Insertion of Infusion Device into Superior Vena Cava, Percutaneous Approach (ICD-10-PCS; 2018-06-14)
DX: A41.1 Sepsis due to other specified staphylococcus (principal); N17.0 Acute kidney failure with tubular necrosis; N39.0 Urinary tract infection, site not specified; I13.0 Hypertensive heart and chronic kidney disease with heart failure and stage 1 through stage 4 chronic kidney disease, or unspecified chronic kidney disease; N13.6 Pyonephrosis; C67.9 Malignant neoplasm of bladder, unspecified; D63.8 Anemia in other chronic diseases classified elsewhere; E03.9 Hypothyroidism, unspecified; E78.5 Hyperlipidemia, unspecified; E88.09 Other disorders of plasma-protein metabolism, not elsewhere classified; F32.9 Major depressive disorder, single episode, unspecified; F41.9 Anxiety disorder, unspecified; I48.91 Unspecified atrial fibrillation; I50.9 Heart failure, unspecified; J44.9 Chronic obstructive pulmonary disease, unspecified; N18.9 Chronic kidney disease, unspecified; N32.89 Other specified disorders of bladder; R65.20 Severe sepsis without septic shock; Z85.46 Personal history of malignant neoplasm of prostate; Z87.891 Personal history of nicotine dependence; Z90.79 Acquired absence of other genital organ(s); Z92.3 Personal history of irradiation; Z88.8 Allergy status to other drugs, medicaments and biological substances
CPT/HCPCS: 36415; 36573; 50431; 50432; 70450; 71045; 74176; 74425; 76770; 76942; 80048; 80053; 80202; 81001; 82550; 83605; 83880; 84145; 84484; 85025; 85610; 85730; 87040; 87077; 87086; 87186; 93005; 96361; 96365; 96375; 99156; 99157; C1894; G0103; G0378; J0878; J2250; J2543; J3010; J3370; Q9966; C1729; C1751; C1769; J2270; J2310; J7030; J7040